=== PATIENT | female | born 1950 | race Caucasian/White ===

== ENCOUNTER 2016-06-10 21:37 | Emergency (ER) | payer MEDICARE, MEDICAID ==
[2016-06-10] MEDS ORDERED: ASPIRIN 81 MG TABLET, CHEWABLE PO ONE (22:44)
[2016-06-10] MEDS ORDERED: MORPHINE SULFATE 10 MG/ML INJ IV ONE ×2 (22:44→23:45)
[2016-06-10 22:50] LABS: ABSOLUTE BASOPHILS # (AUTO) 0.1 10^3/uL (0.0-0.2); ABSOLUTE EOSINOPHILS # (AUTO) 0.2 10^3/uL (0.0-0.6); ABSOLUTE LYMPHOCYTES (AUTO) 4.8 10^3/uL (0.5-4.7); ABSOLUTE MONOCYTES (AUTO) 0.9 10^3/uL (0.1-1.4); ABSOLUTE NEUT (AUTO) 4.5 10^3/uL (1.7-8.2); BASOPHILS % (AUTO) 0.8 % (0-2); EOSINOPHILS % (AUTO) 1.9 % (0-6); HEMATOCRIT 43.8 % (36.0-47.0); HEMOGLOBIN 15.2 g/dL (12.0-15.5); HGB HCT DIFFERENCE 1.8; LYMPHOCYTES % (AUTO) 45.6 % (13-45); MEAN CORPUSCULAR HEMOGLOBIN 31.6 pg (27.0-33.4); MEAN CORPUSCULAR HGB CONC 34.7 g/dL (32.0-36.0); MEAN CORPUSCULAR VOLUME 91 fl (80-97); MONOCYTES % (AUTO) 8.5 % (3-13); RED BLOOD COUNT 4.81 10^6/uL (3.72-5.28); RED CELL DISTRIBUTION WIDTH 11.9 % (11.5-14.0); SEGMENTED NEUTROPHILS % (AUTO) 43.2 % (42-78); WHITE BLOOD COUNT 10.4 10^3/uL (4.0-10.5)
[2016-06-10 23:05] LABS: ALANINE AMINOTRANSFERASE 27 U/L (9-52); ALBUMIN 4.4 g/dL (3.5-5.0); ALKALINE PHOSPHATASE 124 U/L (38-126); ANION GAP 16 (5-19); ASPARTATE AMINO TRANSFERASE 38 U/L (14-36); BILIRUBIN,DIRECT 0.2 mg/dL (0.0-0.4); BILIRUBIN,TOTAL 0.6 mg/dL (0.2-1.3); BLOOD UREA NITROGEN 27 mg/dL (7-20); CALCIUM 10.3 mg/dL (8.4-10.2); CARBON DIOXIDE 21 mmol/L (22-30); CHLORIDE 104 mmol/L (98-107); CREATINE KINASE 68 U/L (30-135); CREATININE RESULT 0.73 mg/dL (0.52-1.25); GLUCOSE 216 mg/dL (75-110); POTASSIUM 4.1 mmol/L (3.6-5.0); SODIUM 140.8 mmol/L (137-145); TOTAL PROTEIN 8.2 g/dL (6.3-8.2)
[2016-06-10] MEDS ORDERED: MORPHINE SULFATE 10 MG/ML INJ ONE (23:15)
[2016-06-10 23:17] LABS: CREATINE KINASE MB 1.12 ng/mL (<4.55)
[2016-06-10 23:26] LABS: TROPONIN I < 0.012 ng/mL
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
[2016-06-11] MEDS ORDERED: MORPHINE SULFATE 10 MG/ML INJ IM ONE (00:37)
[2016-06-11 02:23] LABS: CREATINE KINASE MB 0.83 ng/mL (<4.55)
[2016-06-11 02:24] LABS: TROPONIN I < 0.012 ng/mL
[2016-06-11] MEDS ORDERED: HYDROCODONE/ACETAMINOPHEN 5-325 MG 6 TAB/DSPK PO PRN (02:40)
[2016-06-11 03:03] VITALS: BP 178/94
--- NOTE | 2016-06-11 22:08 | EKG REPORT ---
SEVERITY:- ABNORMAL ECG - SINUS TACHYCARDIA MULTIPLE VENTRICULAR PREMATURE COMPLEXES PROBABLE LEFT ATRIAL ABNORMALITY LEFT AXIS DEVIATION : Confirmed by: Tiffanie Wahl MD 11-Jun-2016 22:06:06
== END 2016-06-11 03:04 | disposition home or self-care (01) ==
LOC: ER 21:37
DX: R07.89 Other chest pain (principal); R06.02 Shortness of breath; R11.0 Nausea; R61 Generalized hyperhidrosis; I25.2 Old myocardial infarction
CPT/HCPCS: 93005; 96376; 99285; 96374; 36415; 82553; 82962; 82550; 83690; 85025; 80053; 84484; 83880; 71020; 93010; A9270; J2270 ×2

== ENCOUNTER 2016-11-16 12:53 | Emergency (ER) | payer MEDICARE, MEDICAID ==
[2016-11-16] MEDS ORDERED: NORMAL SALINE 1000 ML 1,000 ML IV PRN (13:52)
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
[2016-11-16 14:28] LABS: ABSOLUTE EOSINOPHILS # (AUTO) 0.1 10^3/uL (0.0-0.6); ABSOLUTE LYMPHOCYTES (AUTO) 1.9 10^3/uL (0.5-4.7); ABSOLUTE MONOCYTES (AUTO) 0.5 10^3/uL (0.1-1.4); ABSOLUTE NEUT (AUTO) 2.5 10^3/uL (1.7-8.2); BASOPHILS % (AUTO) 0.6 % (0-2); EOSINOPHILS % (AUTO) 2.7 % (0-6); HEMATOCRIT 33.6 % (36.0-47.0); HEMOGLOBIN 11.2 g/dL (12.0-15.5); LYMPHOCYTES % (AUTO) 37.6 % (13-45); MEAN CORPUSCULAR HEMOGLOBIN 31.4 pg (27.0-33.4); MEAN CORPUSCULAR HGB CONC 33.3 g/dL (32.0-36.0); MEAN CORPUSCULAR VOLUME 94 fl (80-97); MONOCYTES % (AUTO) 10.1 % (3-13); RED BLOOD COUNT 3.57 10^6/uL (3.72-5.28); RED CELL DISTRIBUTION WIDTH 12.5 % (11.5-14.0); WHITE BLOOD COUNT 5.1 10^3/uL (4.0-10.5)
[2016-11-16 14:35] LABS: ALANINE AMINOTRANSFERASE 38 U/L (9-52); ALBUMIN 3.3 g/dL (3.5-5.0); ALKALINE PHOSPHATASE 90 U/L (38-126); ANION GAP 10 (5-19); ASPARTATE AMINO TRANSFERASE 33 U/L (14-36); BILIRUBIN,DIRECT 0.5 mg/dL (0.0-0.4); BLOOD UREA NITROGEN 23 mg/dL (7-20); CALCIUM 9.1 mg/dL (8.4-10.2); CARBON DIOXIDE 28 mmol/L (22-30); CHLORIDE 94 mmol/L (98-107); CREATININE RESULT 0.69 mg/dL (0.52-1.25); SODIUM 132.1 mmol/L (137-145); TOTAL PROTEIN 5.8 g/dL (6.3-8.2)
[2016-11-16 14:42] LABS: GLUCOSE 463 mg/dL (75-110)
[2016-11-16] MEDS ORDERED: INSULIN REG, HUMAN 100 UNIT/ML 3 ML VIAL (PYX) SUBCUT ONE (14:43)
[2016-11-16 14:55] LABS: APPEARANCE,URINE CLEAR; BILIRUBIN,URINE NEGATIVE (NEGATIVE); GLUCOSE, URINE >=500 mg/dL (NEGATIVE); KETONES,URINE 20 mg/dL (NEGATIVE); LEUKOCYTE ESTERASE,URINE TRACE (NEGATIVE); NITRITE,URINE NEGATIVE (NEGATIVE); PROTEIN,URINE NEGATIVE (NEGATIVE); URINE SPECIFIC GRAVITY 1.033; UROBILINOGEN,URINE NEGATIVE mg/dL (<2.0)
[2016-11-16 15:20] LABS: VENOUS BLOOD BASE EXCESS 1.2 mmol/L; VENOUS BLOOD HCO3 27.5 mmol/L (20-32); VENOUS BLOOD PCO2 51.1 mmHg (35-63); VENOUS BLOOD PH 7.35 (7.30-7.42)
[2016-11-16 15:59] VITALS: BP 147/69
== END 2016-11-16 15:59 | disposition home or self-care (01) ==
LOC: ER 12:53
DX: F41.9 Anxiety disorder, unspecified (principal); I10 Essential (primary) hypertension; E78.00 Pure hypercholesterolemia, unspecified; E11.65 Type 2 diabetes mellitus with hyperglycemia; I25.10 Atherosclerotic heart disease of native coronary artery without angina pectoris; Z90.710 Acquired absence of both cervix and uterus; Z79.4 Long term (current) use of insulin
CPT/HCPCS: 99283; 96360; 36415; 82962; 85025; 80053; 81001; 82803; A9270; J7030; J1815

== ENCOUNTER 2017-01-03 01:43 | Observation (INO) | payer MEDICAID, MEDICARE ==
[2017-01-03] MEDS ORDERED: METOCLOPRAMIDE HCL INJ/PF 10 MG/2 ML SDV IV ONE (02:41)
[2017-01-03] MEDS ORDERED: DIPHENHYDRAMINE HCL 50 MG/ML VIAL IV ONE (02:41)
[2017-01-03] MEDS ORDERED: HYDRALAZINE HCL 50 MG TABLET PO ONE (02:41)
[2017-01-03 02:46] LABS: ABSOLUTE EOSINOPHILS # (AUTO) 0.2 10^3/uL (0.0-0.6); ABSOLUTE LYMPHOCYTES (AUTO) 3.2 10^3/uL (0.5-4.7); ABSOLUTE MONOCYTES (AUTO) 0.6 10^3/uL (0.1-1.4); ABSOLUTE NEUT (AUTO) 2.7 10^3/uL (1.7-8.2); BASOPHILS % (AUTO) 0.7 % (0-2); EOSINOPHILS % (AUTO) 2.2 % (0-6); HEMATOCRIT 41.2 % (36.0-47.0); HEMOGLOBIN 14.5 g/dL (12.0-15.5); HGB HCT DIFFERENCE 2.3; LYMPHOCYTES % (AUTO) 47.5 % (13-45); MEAN CORPUSCULAR HEMOGLOBIN 33.1 pg (27.0-33.4); MEAN CORPUSCULAR HGB CONC 35.2 g/dL (32.0-36.0); MEAN CORPUSCULAR VOLUME 94 fl (80-97); MONOCYTES % (AUTO) 9.5 % (3-13); RED BLOOD COUNT 4.38 10^6/uL (3.72-5.28); RED CELL DISTRIBUTION WIDTH 13.7 % (11.5-14.0); SEGMENTED NEUTROPHILS % (AUTO) 40.1 % (42-78); WHITE BLOOD COUNT 6.7 10^3/uL (4.0-10.5)
[2017-01-03] MEDS ORDERED: INSULIN REG, HUMAN 100 UNIT/ML 3 ML VIAL (PYX) SUBCUT ONE (02:52)
--- NOTE | 2017-01-03 02:56 | ER Document Report ---
ED General - General Chief Complaint: Blood Pressure Problem Stated Complaint: BLOOD PRESSURE PROBLEMS Time Seen by Provider: 01/03/17 02:35 Notes: Patient is a 66-year-old female presents with complaint of high blood pressure, headache, and vomiting. Patient says that her blood pressure has been running high the last several days and also her blood sugars were running high. She says this is related to stress being that she just found out that her nephews being placed on hospice due to her newfound cancer with metastasis throughout his body. She says she has been taking medications as prescribed. For blood pressure takes Toprol-XL. She takes in the morning. She has had no recent changes in the dosages of her medications. No recent additions of other medications. On exam patient also had some mild right abdominal pain that she says is been there for 4 months. She says her primary care physician is informed her that she has internal shingles. She says she has been treated several times with steroids for this. Denies any worsening or pain. She denies any associated fevers. No dysuria. TRAVEL OUTSIDE OF THE [place] IN LAST 30 DAYS: No - Related Data Allergies/Adverse Reactions: prochlorperazine edisylate [From Compazine] Allergy (Intermediate, Verified 12/23 13:07) facial pain prochlorperazine maleate [From Compazine] Allergy (Intermediate, Verified 13:07) facial pain Past Medical History - Social History Smoking Status: Never Smoker Chew tobacco use (# tins/day): No Frequency of alcohol use: None Drug Abuse: None Family History: Arthritis, CAD, CVA, DM, Hyperlipidemia, Hypertension, Malignancy, Thyroid Disfunction Patient has suicidal ideation: No Patient has homicidal ideation: No - Past Medical History Cardiac Medical History: Reports: Hx Coronary Artery Disease, Hx Hypercholesterolemia, Hx Hypertension Pulmonary Medical History: Reports: Hx Asthma Neurological Medical History: Reports: Hx Migraine Endocrine Medical History: Reports: Hx Diabetes Mellitus Type 2 Renal/ Medical History: Reports: Hx Ovarian Cysts. Denies: Hx Peritoneal Dialysis Musculoskeltal Medical History: Reports Hx Arthritis, Reports Hx Musculoskeletal Deformity, Reports Hx Musculoskeletal Trauma Psychiatric Medical History: Reports: Hx Anxiety, Hx Depression Traumatic Medical History: Reports: Hx Fractures - Shoulder ankle and elbow Past Surgical History: Reports: Hx Hysterectomy, Hx Orthopedic Surgery - Shoulder rotator cuff and carpal tunnel both wrist. Denies: Hx Pacemaker - Immunizations Hx Diphtheria, Pertussis, Tetanus Vaccination: Yes Hx Pneumococcal Vaccination: 03/09/09 Review of Systems - Review of Systems Notes: My Normal Review Basic REVIEW OF SYSTEMS: CONSTITUTIONAL : Denies fever, chills, or sweats. Denies recent illness. EENT: Denies eye, ear, throat, or mouth pain or symptoms. Denies nasal or sinus congestion. RESPIRATORY: Denies cough, cold, or chest congestion. Denies shortness of breath, difficulty breathing, or wheezing. GASTROINTESTINAL: Mild right-sided flank pain. Abdominal pain. A few episodes of vomiting. GENITOURINARY: Denies difficulty urinating, painful urination, burning, frequency, or blood in urine. MUSCULOSKELETAL: Denies neck or back pain or joint pain or swelling. SKIN: Denies rash or skin lesions. NEUROLOGICAL: Denies altered mental status or loss of consciousness. Has a headache. Denies weakness or paralysis or loss of use of either side. Denies problems with gait or speech. Denies sensory or motor loss. ALL OTHER SYSTEMS REVIEWED AND NEGATIVE. Physical Exam - Vital signs Vitals: Temp Pulse Resp BP Pulse Ox 97.3 F 113 H 18 194/99 H 97 01/03/17 01:45 01/03/17 01:45 01/03/17 01:45 01/03/17 01:45 01/03/17 01:45 - Notes Notes: General Appearance: Well nourished, alert, cooperative, no acute distress, no obvious discomfort. Vitals: reviewed, See vital signs table. Head: no swelling or tenderness to the head Eyes: PERRL, EOMI, Conjuctiva clear Mouth: No decreasd moisture Neck: Supple, no neck tenderness, No thyromegaly Lungs: No wheezing, No rales, No rhonci, No accessory muscle use, good air exchange bilaterally. Heart: Normal rate, Regular rythm, No murmur, no rub Abdomen: Normal BS, soft, No rigidity, mild pain to palpation over right flank. No associated right lower quadrant tenderness palpation. Remainder of abdomen is nontender., No guarding, no rebound, Extremities: strength 5/5 in all extremities, good pulses in all extremities, no swelling or tenderness in the extremities, no edema. Skin: warm, dry, appropriate color, no rash Neuro: speech clear, oriented x 3, normal affect, responds appropriately to questions. Cranial nerves II through XII are intact. Distal sensation intact. Patient moves all extremities without difficulty. Course - Re-evaluation Re-evalutation: 01/03/17 06:01 Patient has refractory high blood pressure despite treatment with antihypertensive medications and also treatment of her anxiety with Ativan. Due to having symptoms junction with her hypertension I think it is appropriate to admit her for hypertensive urgency and also for treatment of her hyperglycemia. I did speak with the patient agrees with this. I did speak with the hospitalist, Dr. Sood, who agrees to admit the patient. Dictation of this chart was performed using voice recognition software; therefore, there may be some unintended grammatical errors. - Vital Signs Vital signs: Temp Pulse Resp BP Pulse Ox 97.3 F 113 H 18 197/99 H 97 01/03/17 01:45 01/03/17 01:45 01/03/17 05:01 01/03/17 04:40 01/03/17 05:01 - Laboratory Result Diagrams: 01/03/17 02:25 01/03/17 03:06 Laboratory results interpreted by me: 01/03/17 01/03/17 01/03/17 02:25 03:06 03:37 Seg Neutrophils % 40.1 L Lymphocytes % 47.5 H BUN 21 H Glucose 476 H* POC Glucose 424 H* Calcium 10.7 H Direct Bilirubin 0.5 H - EKG Interpretation by Me Additional EKG results interpreted by me: 01/03/17 02:58 EKG is as reviewed and interpreted by me. EKG shows normal sinus rhythm with rate of [address] segment elevation or depression. No ischemic T-wave inversions. IA interval, QRS duration, QTc intervals are within normal range. Old EKG for comparison is from June 10, 2016. Discharge - Discharge Clinical Impression: Hypertensive urgency, Hyperglycemia Condition: Stable Admitting Provider: Hospitalist Unit Admitted: Telemetry
--- NOTE | 2017-01-03 03:04 | RADIOLOGY REPORT (SQ) ---
EXAM DESCRIPTION: CT HEAD WITHOUT COMPLETED DATE/TIME: 01/03/2017 2:55 am REASON FOR STUDY: headache, HTN COMPARISON: 10/08/2015. TECHNIQUE: Axial images acquired through the brain without intravenous contrast. Images reviewed wi th bone, brain and subdural windows. Images stored on PACS. All CT scanners at this facility use dose modulation, iterative reconstruction, and/or weight based d osing when appropriate to reduce radiation dose to as low as reasonably achievable (ALARA). [facility]: Dose Right [facility]: CareDose [facility]: Dose Right [facility]: Teradose 4D [facility]: Smart [employer] RADIATION DOSE: Up-to-date CT equipment and radiation dose reduction techniques were employed. CTDIv ol: 64.6 mGy. DLP: 1034 mGy-cm. mGy. LIMITATIONS: None. FINDINGS: VENTRICLES: Normal size and contour. CEREBRUM: No masses. No hemorrhage. No midline shift. No evidence for acute infarction. Normal gra y/white matter differentiation. No areas of low density in the white matter. CEREBELLUM: No masses. No hemorrhage. No alteration of density. No evidence for acute infarction. EXTRAAXIAL SPACES: No fluid collections. No masses. ORBITS AND GLOBE: No intra- or extraconal masses. Normal contour of globe without masses. CALVARIUM: No fracture. PARANASAL SINUSES: No fluid or mucosal thickening. SOFT TISSUES: No mass or hematoma. OTHER: No other significant finding. IMPRESSION: NORMAL BRAIN CT WITHOUT CONTRAST. EVIDENCE OF ACUTE STROKE: NO. COMMENT: Quality ID # [id number]: Final reports with documentation of one or more dose reduction techniques (e.g., Automated exposure control, adjustment of the mA and/or kV according to patient size, use of iterative reconstruction technique) TECHNICAL DOCUMENTATION: JOB ID: [id number] [employer]- All Rights Reserved
[2017-01-03 03:05] LABS: CREATINE KINASE MB 0.83 ng/mL (<4.55); TROPONIN I 0.014 ng/mL
[2017-01-03 03:28] LABS: ALANINE AMINOTRANSFERASE 28 U/L (9-52); ALBUMIN 4.5 g/dL (3.5-5.0); ALKALINE PHOSPHATASE 110 U/L (38-126); ANION GAP 16 (5-19); ASPARTATE AMINO TRANSFERASE 32 U/L (14-36); BILIRUBIN,DIRECT 0.5 mg/dL (0.0-0.4); BLOOD UREA NITROGEN 21 mg/dL (7-20); CALCIUM 10.7 mg/dL (8.4-10.2); CARBON DIOXIDE 24 mmol/L (22-30); CHLORIDE 99 mmol/L (98-107); CREATININE RESULT 0.79 mg/dL (0.52-1.25); POTASSIUM 4.4 mmol/L (3.6-5.0); SODIUM 139.2 mmol/L (137-145); TOTAL PROTEIN 8.2 g/dL (6.3-8.2)
[2017-01-03 03:40] LABS: CREATINE KINASE 41 U/L (30-135)
--- NOTE | 2017-01-03 03:40 | RADIOLOGY REPORT (SQ) ---
EXAM DESCRIPTION: CHEST SINGLE VIEW COMPLETED DATE/TIME: 01/03/2017 2:48 am REASON FOR STUDY: chest pain; hypertension COMPARISON: 06/10/2016. EXAM PARAMETERS: NUMBER OF VIEWS: One view. TECHNIQUE: Single frontal radiographic view of the chest acquired. RADIATION DOSE: NA LIMITATIONS: None. FINDINGS: LUNGS AND PLEURA: Moderate hyperinflation. MEDIASTINUM AND HILAR STRUCTURES: No masses. Contour normal. HEART AND VASCULAR STRUCTURES: Heart normal in size. BONES: No acute findings. HARDWARE: Arthroplasty of the right humeral head. OTHER: No other significant finding. IMPRESSION: No acute cardiopulmonary findings. TECHNICAL DOCUMENTATION: JOB ID: [id number]
[2017-01-03 03:48] LABS: GLUCOSE 476 mg/dL (75-110)
[2017-01-03] MEDS ORDERED: NORMAL SALINE 500 ML IV ONE (03:48)
[2017-01-03] MEDS ORDERED: LORAZEPAM INJ 2 MG/1 ML VIAL IV ONE (05:07)
[2017-01-03] MEDS ORDERED: LABETALOL HCL INJ 20 MG/4 ML DISP.SYRIN IV ONE (05:07)
[2017-01-03] MEDS ORDERED: KETOROLAC TROMETHAMINE INJ/PF 30 MG/1 ML SDV IV ONE ×2 (05:43→11:12)
[2017-01-03] MEDS ORDERED: CYCLOBENZAPRINE HCL 10 MG TABLET PO PRN (06:01)
[2017-01-03] MEDS ORDERED: DIAZEPAM 2 MG TABLET PO PRN (06:03)
[2017-01-03] MEDS ORDERED: DEXTROSE 50%-WATER 25 GM/50 ML DISP.SYRIN IV PRN ×2 (06:04)
[2017-01-03] MEDS ORDERED: DEXTROSE 40% GEL 15 GM TUBE PO PRN ×2 (06:04)
[2017-01-03] MEDS ORDERED: GLUCAGON,HUMAN RECOMB 1 MG INJ IM PRN (06:04)
[2017-01-03] MEDS ORDERED: MAGNESIUM HYDROXIDE SUSP 30 ML UDCUP PO PRN (06:04)
[2017-01-03] MEDS ORDERED: IPRATROPIUM/ALBUTEROL 0.5-2.5 MG/3 ML AMPUL NEB PRN (06:04)
[2017-01-03] MEDS ORDERED: ACETAMINOPHEN 325 MG TABLET PO PRN (06:04)
--- NOTE | 2017-01-03 06:46 | PDOC H&P ---
History of Present Illness Admission Date/PCP: 01/03/17 06:04 MAIKEL TYLER MD Patient complains of: Headache nausea and vomiting History of Present Illness: YAAKOV SUMMERS is a 66 year old female with a past medical history of hypertension, diabetes, dyslipidemia and anxiety. Patient has been under exceptional emotional stress with diagnosis of terminal illness of nephew and noncompliance with medication regiment. She presents after 6 hours of nausea vomiting and headache, in the emergency room she is found to have systolic pressure greater than 200 and uncontrolled hyperglycemia. She receives IV hydralazine, labetalol, insulin and Ativan with improvement of symptoms and referred to the hospitalist for admission. She denies chest pain or shortness of breath. Past Medical History Cardiac Medical History: Reports: Coronary Artery Disease, Hyperlipidema, Hypertension Pulmonary Medical History: Reports: Asthma Neurological Medical History: Reports: Migraine Endocrine Medical History: Reports: Diabetes Mellitus Type 2, Obesity Musculoskeltal Medical History: Reports: Arthritis Psychiatric Medical History: Reports: Depression, General Anxiety Disorder Past Surgical History Past Surgical History: Reports: Hysterectomy, Orthopedic Surgery - Shoulder rotator cuff and carpal tunnel both wrist Denies: Pacemaker Social History Information Source: Patient, [facility] Records Lives with: Alone Smoking Status: Never Smoker Frequency of Alcohol Use: None Hx Recreational Drug Use: No Drugs: None Hx Prescription Drug Abuse: No - Advance Directive Resuscitation Status: Full Code Family History Family History: Arthritis, CAD, CVA, DM, Hyperlipidemia, Hypertension, Malignancy, Thyroid Disfunction Parental Family History Reviewed: Yes Children Family History Reviewed: Yes Sibling(s) Family History Reviewed.: Yes Medication/Allergy Home Medications: Albuterol Sulfate [Ventolin Hfa] 1 puff IH ASDIR PRN 02/08/15 Atorvastatin Calcium [Lipitor 80 mg Tablet] 80 mg PO DAILY 02/08/15 Cyclobenzaprine HCl 10 mg PO TID PRN 02/08/15 Duloxetine HCl [Cymbalta] 60 mg PO BID 02/08/15 Gabapentin [Neurontin] 600 mg PO QID 02/08/15 Hydroxyzine Pamoate [Vistaril 25 mg Capsule] 25 mg PO QHS 02/08/15 Ipratropium/Albuterol Sulfate [Combivent Respimat 4 gm Mdi] 1 puff IH ASDIR PRN 02/08/15 Lorazepam [Ativan 1 mg Tablet] 1 mg PO BID PRN 02/08/15 Metoprolol Succinate [Toprol Xl 25 mg Tab.sr] 25 mg PO DAILY 02/08/15 Rizatriptan Benzoate [[employer]] 10 mg PO ASDIR PRN 02/08/15 Hydrochlorothiazide 12.5 mg PO DAILY 07/30/15 Metformin HCl [Metformin HCl ER] 1,000 mg PO DAILY 07/30/15 Oxycodone HCl/Acetaminophen [Percocet 7.5-325 mg Tablet] 1 tab PO QID PRN Promethazine HCl 25 mg PO PRN PRN 07/30/15 Insulin Glargine,Hum.rec.anlog [Lantus Insulin 100 Unit/mL] 44 units SQ QHS Insulin NPH Hum/Reg Insulin Hm [Humulin 70-30 Vial] 20 units SQ Q6HP 07/31/15 Insulin NPH Hum/Reg Insulin Hm [Humulin 70-30 Vial] 30 unit SQ Q8A 07/31/15 Fenofibrate Nanocrystallized [Tricor 48 mg Tablet] 48 mg PO DAILY #30 tablet Lansoprazole [Prevacid 30 mg Odt Tablet] 30 mg PO Q6AM #30 tab.rap. 08/01/15 Hydrocodone/Acetaminophen [Hydrocodon-Acetaminophen 5-325] 1 each PO Q6 #10 tablet 06/11/16 Allergies/Adverse Reactions: prochlorperazine edisylate [From Compazine] Allergy (Intermediate, Verified 12/23 13:07) facial pain prochlorperazine maleate [From Compazine] Allergy (Intermediate, Verified 13:07) facial pain Review of Systems Constitutional: PRESENT: as per HPI, other - Polyuria polydipsia and headache. ABSENT: chills, fever(s), headache(s), weight gain, weight loss Eyes: ABSENT: visual disturbances Ears: ABSENT: hearing changes Cardiovascular: ABSENT: chest pain, dyspnea on exertion, edema, orthropnea, palpitations Respiratory: ABSENT: cough, hemoptysis Gastrointestinal: ABSENT: abdominal pain, constipation, diarrhea, hematemesis, hematochezia, nausea, vomiting Genitourinary: ABSENT: dysuria, hematuria Musculoskeletal: ABSENT: joint swelling Integumentary: ABSENT: rash, wounds Neurological: ABSENT: abnormal gait, abnormal speech, confusion, dizziness, focal weakness, syncope Psychiatric: ABSENT: anxiety, depression, homidical ideation, suicidal ideation Endocrine: ABSENT: cold intolerance, heat intolerance, polydipsia, polyuria Hematologic/Lymphatic: ABSENT: easy bleeding, easy bruising Physical Exam Vital Signs: Temp Pulse Resp BP Pulse Ox 97.3 F 113 H 23 H 211/97 H 96 01/03/17 01:45 01/03/17 01:45 01/03/17 06:07 01/03/17 05:31 01/03/17 06:07 General appearance: PRESENT: no acute distress, well-developed, well-nourished Head exam: PRESENT: atraumatic, normocephalic Eye exam: PRESENT: conjunctiva pink, EOMI, PERRLA. ABSENT: scleral icterus Ear exam: PRESENT: normal external ear exam Mouth exam: PRESENT: moist, tongue midline Neck exam: ABSENT: carotid bruit, JVD, lymphadenopathy, thyromegaly Respiratory exam: PRESENT: clear to auscultation reanna. ABSENT: rales, rhonchi, wheezes Cardiovascular exam: PRESENT: RRR. ABSENT: diastolic murmur, rubs, systolic murmur Pulses: PRESENT: normal dorsalis pedis pul Vascular exam: PRESENT: normal capillary refill GI/Abdominal exam: PRESENT: normal bowel sounds, soft. ABSENT: distended, guarding, mass, organolmegaly, rebound, tenderness Rectal exam: PRESENT: deferred Extremities exam: PRESENT: full ROM. ABSENT: calf tenderness, clubbing, pedal edema Neurological exam: PRESENT: alert, awake, oriented to person, oriented to place , oriented to time, oriented to situation, CN II-XII grossly intact. ABSENT: motor sensory deficit Psychiatric exam: PRESENT: anxious. ABSENT: homicidal ideation, suicidal ideation Skin exam: PRESENT: dry, intact, warm. ABSENT: cyanosis, rash Results Impressions: Chest X-Ray 01/03/17 01:59 IMPRESSION: No acute cardiopulmonary findings. Head CT 01/03/17 02:42 IMPRESSION: NORMAL BRAIN CT WITHOUT CONTRAST. EVIDENCE OF ACUTE STROKE: NO. Assessment & Plan - Diagnosis (1) Hypertensive urgency Is this a current diagnosis for this admission?: Yes Plan: Secondary to noncompliance and uncontrolled anxiety. Patient will be admitted to a monitored bed with reintroduction of home regiment with holding parameters to avoid systolic pressure less than 150. Patient is also without financial means to obtain medications discharge planning will be consulted. (2) Anxiety Is this a current diagnosis for this admission?: Yes Plan: Trazodone and low-dose benzodiazepine ordered. (3) Hyperglycemia Is this a current diagnosis for this admission?: Yes Plan: Uncontrolled hyperglycemia secondary to noncompliance and anxious state. Reintroduction of insulin 7030 with sliding scale and discharge planning consult as unable to fill prescriptions secondary to financial barriers. - Time Time Spent: 50 to 70 Minutes
[2017-01-03 09:40] LABS: CREATINE KINASE MB 0.77 ng/mL (<4.55)
[2017-01-03 09:46] LABS: TROPONIN I < 0.012 ng/mL
[2017-01-03] MEDS ORDERED: HYDROCHLOROTHIAZIDE 12.5 MG CAPSULE PO SCH (10:00)
[2017-01-03] MEDS ORDERED: TRAZODONE HCL 50 MG TABLET PO SCH (10:00)
[2017-01-03] MEDS ORDERED: METOPROLOL SUCCINATE 25 MG TAB.SR.24H PO SCH (10:00)
[2017-01-03] MEDS ORDERED: ATORVASTATIN CALCIUM 80 MG TABLET PO SCH (10:00)
[2017-01-03] MEDS ORDERED: IPRATROPIUM/ALBUTEROL 120 PUFF/4 GM MDI IH SCH (10:00)
[2017-01-03] MEDS ORDERED: FENOFIBRATE NANOCRYSTALLIZED 48 MG TABLET PO SCH (10:00)
[2017-01-03] MEDS: HUM INSULIN NPH/REG INSULIN HM 100 UNIT/1 ML 3 ML SUBCUT SCH ×2 (10:00→16:39)
[2017-01-03] MEDS: DULOXETINE HCL 30 MG CAPSULE.DR PO SCH ×2 (10:01→18:29)
[2017-01-03] MEDS: INSULIN LISPRO 100 UNIT/ML 3 ML VIAL SUBCUT PRN ×3 (10:01→16:42)
[2017-01-03] MEDS: GABAPENTIN 300 MG CAPSULE PO SCH ×3 (10:01→18:30)
[2017-01-03] MEDS: DOCUSATE SODIUM 100 MG CAPSULE PO SCH ×2 (10:03→18:30)
[2017-01-03] MEDS ORDERED: (PENDING PHARMACY ID) (Oxycodone Hcl/Acetaminophen [Percocet 7.5-325 Mg Tablet] 1 TAB) PO PRN (11:14)
[2017-01-03] MEDS ORDERED: HYDROCHLOROTHIAZIDE 25 MG TABLET PO ONE (11:30)
[2017-01-03] MEDS ORDERED: METOPROLOL SUCCINATE 50 MG TAB.SR.24H PO ONE (11:30)
[2017-01-03] MEDS ORDERED: OXYCODONE-ACETAMINOPHEN 5-325 MG TABLET PO PRN (11:38)
[2017-01-03] MEDS ORDERED: OXYCODONE HCL IR 5 MG TABLET PO PRN (11:38)
[2017-01-03] MEDS: IPRATROPIUM/ALBUTEROL 120 PUFF/4 GM MDI IH SCH ×2 (12:22→18:49)
--- NOTE | 2017-01-03 13:37 | EKG REPORT ---
SEVERITY:- BORDERLINE ECG - SINUS RHYTHM PROBABLE LEFT ATRIAL ABNORMALITY LEFT AXIS DEVIATION : Confirmed by: Rox Diaz 03-Jan-2017 13:36:37
[2017-01-03] MEDS ORDERED: HEPARIN SOD (PORCINE) 5,000 UNIT/ML 1 ML SYRINGE SUBCUT SCH (14:00)
--- NOTE | 2017-01-03 15:12 | PDOC DISCHARGE SUMMARY ---
General - Admit/Disc Date/PCP Admission Date/Primary Care Provider: 01/03/17 06:04 MAIKEL TYLER MD Discharge Date: 01/03/17 - Discharge Diagnosis (1) Hypertensive urgency Is this a current diagnosis for this admission?: Yes Summary: Pt admitted with hypertensive urgency; BP as high as 277/97. Workup did not reveal end organ damage. Pt does endorse medication noncompliance, stating she "picks and chooses" when to take her medications. She has also been under increased stress recently related to family. Her home medications were restituted with slight increases to her metoprolol and hydrochlorothiazide and subsequent improvement in BP. BP remains elevated at 168/66, however, is acceptable for discharge to home with close follow up with primary care provider. (2) Hyperglycemia Is this a current diagnosis for this admission?: Yes Summary: Upon admission, the patient's bgl was 476 with A1c of 9.9%. She reported that she was unable to comply with insulin therapy 2/2 financial burden and so her glucose was managed with 70/30 and sliding scale insulin with gradual reduction of bgl. However, she later states that she has metformin and lantus available to her at home. Ss she is admittedly noncompliant, there is concern about whether she truly has insulin available to her at home. Record review shows that patient has previously been prescribed 70/30, and so she is provided a prescription for the same with strict instructions to continue this regiment until follow up with pcp next week. (3) Noncompliance with medication regimen Is this a current diagnosis for this admission?: Yes Summary: Pt reports that she "picks and chooses" which of her medications she wishes to take. She states that this is due to the fact that "they don't write the reasons for med pills on the bottle." She denies difficulty with affording medications and confirms that she has filled medications recently and has them available at home to take. Discussed importance of taking medications as prescribed to manage her hypertension and diabetes. She states she will "do what she can." (4) Anxiety Is this a current diagnosis for this admission?: Yes Summary: Pt with history of anxiety exacerbated by family member recently being diagnosed with a terminal illness. She was provided trazadone with adequate reduction of anxiety. Review of [facility] database demonstrates that pt was previously prescribed senior living BZO that were discontinued this time last year; discussed with patient that she would benefit from speaking with her PCP about her anxiety symptoms and consider a referral for outpatient psychiatry/ counselling services. (5) Headache Is this a current diagnosis for this admission?: Yes Summary: Pt with hx of chronic headaches that she reports have been unresponsive "to everything but oxycodone" in the past. Work up in the ED did include a Head CT with no abnormal findings. IV toradol was provided with moderate relief and her home pain medication regiment was continued. (6) Chronic pain disorder Is this a current diagnosis for this admission?: Yes Summary: Pt with hx of chronic right shoulder and back pain who is followed by pain management. Review of [place] controlled database demonstrates that pt received Opana BID and oxycodone TID. Her home medications were continued. (7) Diabetes mellitus type 2 in obese Is this a current diagnosis for this admission?: Yes - Additional Information Resuscitation Status: Full Code Home Medications: Acetaminophen [Tylenol 325 mg Tablet] 650 mg PO Q4HP PRN tablet 01/03/17 Atorvastatin Calcium [Lipitor 80 mg Tablet] 80 mg PO QHS 01/03/17 Duloxetine HCl [Cymbalta] 60 mg PO Q12 01/03/17 Fenofibrate Nanocrystallized [Fenofibrate] 48 mg PO DAILY 01/03/17 Gabapentin [Neurontin] 600 mg PO Q6 01/03/17 Hum Insulin NPH/Reg Insulin Hm [Insulin 70-30 (NPH/Reg) 100 unit/mL] 30 unit SUBCUT Q8A #3 vial 01/03/17 Hydrochlorothiazide [Hydrodiuril 25 mg Tablet] 25 mg PO DAILY #30 tablet Hydroxyzine HCl [Atarax 25 mg Tablet] 25 mg PO Q8HP PRN 01/03/17 Ipratropium/Albuterol Sulfate [Combivent Respimat 4 gm Mdi] 1 puff IH Q6 Metoprolol Succinate [Toprol Xl 50 mg Tab.sr] 50 mg PO DAILY #30 tab.sr.24h Oxycodone HCl/Acetaminophen [Percocet 7.5-325 mg Tablet] 1 tab PO Q8HP PRN 01/03 Oxymorphone HCl [Opana ER] 10 mg PO Q12 10/28/17 Syringe and Needle,Insulin,1Ml [Insulin Syringe] 1 each SQ TID #90 disp.syrin History of Present Illness History of Present Illness: Per H&P by Dr. Sood: YAAKOV SUMMERS is a 66 year old female with a past medical history of hypertension, diabetes, dyslipidemia and anxiety. Patient has been under exceptional emotional stress with diagnosis of terminal illness of nephew and noncompliance with medication regiment. She presents after 6 hours of nausea vomiting and headache, in the emergency room she is found to have systolic pressure greater than 200 and uncontrolled hyperglycemia. She receives IV hydralazine, labetalol, insulin and Ativan with improvement of symptoms and is referred to the hospitalist for admission. She denies chest pain or shortness of breath. Hospital Course Hospital Course: Pt was admitted overnight for observation and treatment of hypertensive urgency and hyperglycemia complicated by anxiety and medication non adherence. Her home medications were restituted with slight increases to her metoprolol and hydrochlorothiazide and subsequent improvement in BP. Her glucose was managed with 70/30 and sliding scale insulin with gradual reduction of bgl. Otherwise, her hospital stay was uneventful. She is discharged to home with strong recommendations to take medications as prescribed and to follow up with primary care within one week. Physical Exam Vital Signs: Temp Pulse Resp BP Pulse Ox 98.3 F 76 16 168/66 H 98 01/03/17 09:29 01/03/17 09:29 01/03/17 09:29 01/03/17 09:29 01/03/17 09:29 Intake & Output 01/02/17 01/03/17 01/04/17 06:59 06:59 06:59 Weight 89.1 kg General appearance: PRESENT: no acute distress, obese, well-developed, well- nourished Head exam: PRESENT: atraumatic, normocephalic Eye exam: PRESENT: conjunctiva pink, EOMI, PERRLA. ABSENT: scleral icterus Ear exam: PRESENT: normal external ear exam Mouth exam: PRESENT: moist, tongue midline Neck exam: ABSENT: carotid bruit, JVD, lymphadenopathy, thyromegaly Respiratory exam: PRESENT: clear to auscultation reanna, symmetrical, unlabored. ABSENT: rales, rhonchi, wheezes Cardiovascular exam: PRESENT: RRR, +S1, +S2. ABSENT: diastolic murmur, rubs, systolic murmur Pulses: PRESENT: normal dorsalis pedis pul Vascular exam: PRESENT: normal capillary refill GI/Abdominal exam: PRESENT: normal bowel sounds, soft. ABSENT: distended, guarding, mass, organolmegaly, rebound, tenderness Rectal exam: PRESENT: deferred Extremities exam: PRESENT: full ROM. ABSENT: calf tenderness, clubbing, pedal edema Neurological exam: PRESENT: alert, awake, oriented to person, oriented to place , oriented to time, oriented to situation, CN II-XII grossly intact. ABSENT: motor sensory deficit Psychiatric exam: PRESENT: anxious, appropriate affect. ABSENT: homicidal ideation, suicidal ideation Skin exam: PRESENT: dry, intact, warm. ABSENT: cyanosis, rash Results Laboratory Results: 01/03/17 08:58 TSH 0.63 01/03/17 01/03/17 08:58 08:58 Creatine Kinase 23 L CK-MB (CK-2) 0.77 Troponin I < 0.012 Impressions: Chest X-Ray 01/03/17 01:59 IMPRESSION: No acute cardiopulmonary findings. Head CT 01/03/17 02:42 IMPRESSION: NORMAL BRAIN CT WITHOUT CONTRAST. EVIDENCE OF ACUTE STROKE: NO. Qualifiers PATEINT BEING DISCHARGED WITH ANY OF THE FOLLOWING DIAGNOSIS?: No Plan Discharge Plan: D/C to home. Follow up with primary care provider next week.
[2017-01-03 16:19] LABS: CREATINE KINASE MB 0.73 ng/mL (<4.55)
[2017-01-03 16:24] LABS: TROPONIN I < 0.012 ng/mL
[2017-01-03 17:50] VITALS: BP 171/84
[2017-01-03] MEDS ORDERED: HUM INSULIN NPH/REG INSULIN HM 100 UNIT/1 ML 3 ML SUBCUT SCH (22:00)
[2017-01-03] MEDS ORDERED: (PENDING PHARMACY ID) (Oxymorphone Hcl [Opana Er] 10 MG) PO SCH (22:00)
[2017-01-04] MEDS ORDERED: HYDROCHLOROTHIAZIDE 25 MG TABLET PO SCH (10:00)
[2017-01-04] MEDS ORDERED: METOPROLOL SUCCINATE 50 MG TAB.SR.24H PO SCH (10:00)
== END 2017-01-03 18:58 | disposition home or self-care (01) ==
LOC: ER 01:43 → EH 06:04 → 4S 09:12
PROVIDERS: ADMIT Internal Medicine; ATTEND Internal Medicine
DX: I16.0 Hypertensive urgency (principal); Z91.14 Patient's other noncompliance with medication regimen; F41.1 Generalized anxiety disorder; R51 Headache; G89.29 Other chronic pain; M25.511 Pain in right shoulder; M54.9 Dorsalgia, unspecified; E66.9 Obesity, unspecified; E11.65 Type 2 diabetes mellitus with hyperglycemia; E78.5 Hyperlipidemia, unspecified; Z79.899 Other long term (current) drug therapy; Z82.3 Family history of stroke; Z82.49 Family history of ischemic heart disease and other diseases of the circulatory system; Z59.9 Problem related to housing and economic circumstances, unspecified; Z90.710 Acquired absence of both cervix and uterus; Z68.34 Body mass index [BMI] 34.0-34.9, adult
CPT/HCPCS: 93005; 99285; 96361; 96374; 96375; 36415; 82553; 82962; 82550; 84443; 85025; 80053; 84484; 83036; 71010; 70450; 93010; G0378 ×2; A9270 ×14; J1644; J1200; J3490; J1885; J2765; J2060; J7040; J1815

== ENCOUNTER 2017-08-25 09:58 | Emergency (ER) | payer MEDICAID, MEDICARE ==
[2017-08-25] MEDS ORDERED: HYDROMORPHONE HCL INJ/PF 2 MG/ML AMPULE IM ONE (11:05)
[2017-08-25] MEDS ORDERED: LIDOCAINE 5% (700 MG) TRANSDERMAL ADH..PATCH TP ONE (11:06)
--- NOTE | 2017-08-25 11:06 | ER Document Report ---
HPI - HPI Patient complains to provider of: Sciatica Onset: Other - 2 days Onset/Duration: Persistent, Worse Quality of pain: Sharp Pain Level: 5 Context: Patient reports sciatica for the past 2 days. Patient states she has had this in the past and this is similar presentation to previous episode. Patient denies any back injury. Patient does complain of nausea. Patient denies any fever or urinary symptoms. Patient does take chronic pain medication for chronic shoulder pain and states that she ran out of her pain medication last week. Associated Symptoms: Other - Low back pain Exacerbated by: Movement Relieved by: Denies Similar symptoms previously: Yes Recently seen / treated by doctor: No - ROS ROS below otherwise negative: Yes Systems Reviewed and Negative: Yes All other systems reviewed and negative - CONSTITUTIONAL Constitutional: DENIES: Fever, Chills - NEURO Neurology: DENIES: Headache, Weakness - GASTROINTESTINAL Gastrointestinal: REPORTS: Nausea. DENIES: Abdominal Pain, Patient vomiting, Diarrhea - URINARY Urinary: DENIES: Dysuria - REPRODUCTIVE Reproductive: DENIES: : - MUSCULOSKELETAL Musculoskeletal: REPORTS: Extremity pain - right leg, Back Pain. DENIES: Neck Pain - DERM Skin Color: Normal Skin Problems: None Past Medical History - General Information source: Patient - Social History Smoking Status: Never Smoker Chew tobacco use (# tins/day): No Frequency of alcohol use: None Drug Abuse: None Occupation: None Lives with: Family Family History: Arthritis, CAD, CVA, DM, Hyperlipidemia, Hypertension, Malignancy, Thyroid Disfunction Patient has suicidal ideation: No Patient has homicidal ideation: No - Past Medical History Cardiac Medical History: Reports: Hx Coronary Artery Disease, Hx Hypercholesterolemia, Hx Hypertension Pulmonary Medical History: Reports: Hx Asthma Neurological Medical History: Reports: Hx Migraine Endocrine Medical History: Reports: Hx Diabetes Mellitus Type 2 Renal/ Medical History: Reports: Hx Ovarian Cysts. Denies: Hx Peritoneal Dialysis Musculoskeltal Medical History: Reports Hx Arthritis, Reports Hx Musculoskeletal Deformity, Reports Hx Musculoskeletal Trauma Psychiatric Medical History: Reports: Hx Anxiety, Hx Depression - anxiety Traumatic Medical History: Reports: Hx Fractures - Shoulder ankle and elbow Past Surgical History: Reports: Hx Hysterectomy, Hx Orthopedic Surgery - Shoulder rotator cuff and carpal tunnel both wrist. Denies: Hx Pacemaker - Immunizations Hx Diphtheria, Pertussis, Tetanus Vaccination: Yes Hx Pneumococcal Vaccination: 03/09/09 Vertical Provider Document - CONSTITUTIONAL Agree With Documented VS: Yes Exam Limitations: No Limitations General Appearance: WD/WN, No Apparent Distress Notes: PHYSICAL EXAMINATION: GENERAL: Well-appearing, well-nourished and in no acute distress. HEAD: Atraumatic, normocephalic. EYES: sclera clear, anicteric, conjunctiva are normal. ENT: nares patent, Moist mucous membranes. NECK: Normal range of motion, supple no lymphadenopathy LUNGS: respirations unlabored HEART: Regular rate and rhythm without murmurs EXTREMITIES: Normal range of motion, no pitting or edema. No cyanosis. Gait normal, pt ambulates without difficulty BACK: Right lumbar paraspinal tenderness, right SI joint tenderness, no midline tenderness, no deformities or step-offs. No CVA tenderness. NEUROLOGICAL: Cranial nerves grossly intact. Normal speech, normal gait. No saddle anesthesia. No foot drop PSYCH: Normal mood, normal affect. SKIN: Warm, Dry, normal turgor, no rashes or lesions noted. - INFECTION CONTROL TRAVEL OUTSIDE OF THE [place] IN LAST 30 DAYS: No Course - Re-evaluation Re-evalutation: 08/25/17 11:13 Controlled substance database reviewed. Patient had a prescription for 30 day supply of oxymorphone 10 mg twice daily filled on August 07, 2017 as well as a prescription for Percocet 7.5/325 p.o. 3 times daily filled on August 07, 2017 for 30 day supply. Patient states she ran out of her Percocet pain medication 1 week ago, but believes that she still has the oxymorphone at home. Patient states she has only had the sciatica pain for the past 2 days although states that she hasn't been taking her pain medication as it has been prescribed. Patient advised that she will need to follow-up with her pain management doctor for any additional refills that she may need. Patient encouraged to take her oxymorphone as prescribed in addition to Tylenol [id number] for her pain symptoms. - Vital Signs Vital signs: Temp Pulse Resp BP Pulse Ox 97.5 F 97 20 185/86 H 98 08/25/17 10:02 08/25/17 10:02 08/25/17 10:02 08/25/17 10:02 08/25/17 10:02 Discharge - Discharge Clinical Impression: Sciatica Qualifiers: Laterality: right Qualified Code(s): M54.31 - Sciatica, right side Condition: Stable Disposition: HOME, SELF-CARE Instructions: Acetaminophen, Ice Packs ([facility]), Low Back Pain ([facility]), Sciatica ( [facility]), Steroid Medication Additional Instructions: Return immediately for any new or worsening symptoms Followup with your primary care provider, call tomorrow to make a followup appointment You may take Tylenol as well as lidocaine topical patches [id number] as directed to help with your pain symptoms. Follow-up with your pain management doctor to address any refills that you may need of your pain medication. It is important that you take your prescription medications as prescribed and do not take your pain medication any more frequently than it is written for. Prescriptions: Prednisone [Deltasone 20 mg Tablet] 2 tab PO DAILY 4 Days tablet Referrals: MAIKEL TYLER MD [NO LOCAL MD] - Follow up as needed
[2017-08-25] MEDS ORDERED: PREDNISONE 20 MG TABLET PO ONE (11:13)
[2017-08-25 11:28] VITALS: BP 168/80
== END 2017-08-25 11:35 | disposition home or self-care (01) ==
LOC: ER 09:58
DX: M54.31 Sciatica, right side (principal); I25.10 Atherosclerotic heart disease of native coronary artery without angina pectoris; E78.00 Pure hypercholesterolemia, unspecified; I10 Essential (primary) hypertension; E11.9 Type 2 diabetes mellitus without complications; Z90.710 Acquired absence of both cervix and uterus
CPT/HCPCS: 99283; 96372; J1170; A9270; J7512

== ENCOUNTER 2017-08-27 05:41 | Emergency (ER) | payer MEDICARE, MEDICAID ==
[2017-08-27] MEDS ORDERED: ACETAMINOPHEN 325 MG TABLET PO ONE (06:52)
[2017-08-27] MEDS ORDERED: KETOROLAC TROMETHAMINE 60 MG/2 ML SDV IM ONE (08:07)
--- NOTE | 2017-08-27 08:09 | ER Document Report ---
ED Medical Screen (RME) - General Chief Complaint: Back Pain Stated Complaint: BACK PAIN Time Seen by Provider: 08/27/17 08:05 Mode of Arrival: Ambulatory Information source: Patient Notes: Patient presents emergency department with complaints of right-sided sciatica pain. Reports history of sciatic pain. Reports this pain started 4 days ago. Denies trauma. Denies urinary bowel incontinence or retention. Reports she has not had this pain for 10 years. TRAVEL OUTSIDE OF THE [place] IN LAST 30 DAYS: No - Related Data Allergies/Adverse Reactions: prochlorperazine edisylate [From Compazine] Allergy (Intermediate, Verified 09:58) facial pain prochlorperazine maleate [From Compazine] Allergy (Intermediate, Verified 09:58) facial pain Past Medical History - Social History Chew tobacco use (# tins/day): No Frequency of alcohol use: None Drug Abuse: None - Past Medical History Cardiac Medical History: Reports: Hx Coronary Artery Disease, Hx Hypercholesterolemia, Hx Hypertension Pulmonary Medical History: Reports: Hx Asthma Neurological Medical History: Reports: Hx Migraine Endocrine Medical History: Reports: Hx Diabetes Mellitus Type 2 Renal/ Medical History: Reports: Hx Ovarian Cysts. Denies: Hx Peritoneal Dialysis Musculoskeltal Medical History: Reports Hx Arthritis, Reports Hx Musculoskeletal Deformity, Reports Hx Musculoskeletal Trauma Psychiatric Medical History: Reports: Hx Anxiety, Hx Depression - anxiety Traumatic Medical History: Reports: Hx Fractures - Shoulder ankle and elbow Past Surgical History: Reports: Hx Hysterectomy, Hx Orthopedic Surgery - Shoulder rotator cuff and carpal tunnel both wrist. Denies: Hx Pacemaker - Immunizations Hx Diphtheria, Pertussis, Tetanus Vaccination: Yes History of Influenza Vaccine for 12/2016 - 05/2017 Season: Yes Influenza Administration Date for 12/2016 - 05/2017 Season: 12/08/16 Physical Exam - Vital signs Vitals: Temp Pulse Resp BP Pulse Ox 97.4 F 101 H 24 H 179/100 H 97 08/27/17 05:57 08/27/17 05:57 08/27/17 05:57 08/27/17 05:57 08/27/17 05:57 Course - Vital Signs Vital signs: Temp Pulse Resp BP Pulse Ox 97.4 F 101 H 24 H 179/100 H 97 08/27/17 05:57 08/27/17 05:57 08/27/17 05:57 08/27/17 05:57 08/27/17 05:57 Doctor's Discharge - Discharge Referrals: JACKSON ROLDAN MD [Primary Care Provider] - Follow up as needed
--- NOTE | 2017-08-27 11:07 | ER Document Report ---
ED Neck/Back Problem - General Mode of Arrival: Ambulatory Information source: Patient TRAVEL OUTSIDE OF THE [place] IN LAST 30 DAYS: No - General Chief Complaint: Back Pain Stated Complaint: BACK PAIN Time Seen by Provider: 08/27/17 08:05 Notes: Patient is a 67-year-old female who presents to the emergency department today with complaints of right-sided "sciatica pain". Patient is in pain management, however she states she ran out of her pain medication due to increased pain. Patient was seen here 2 days ago for this and she was prescribed steroids however the patient states she thinks she "accidentally threw them away with other empty pill bottles." Patient denies any fevers or trauma to the area. ( ELIAN DELEON) - Related Data Allergies/Adverse Reactions: prochlorperazine edisylate [From Compazine] Allergy (Intermediate, Verified 09:58) facial pain prochlorperazine maleate [From Compazine] Allergy (Intermediate, Verified 09:58) facial pain Past Medical History - General Information source: Patient - Social History Smoking Status: Unknown if Ever Smoked Cigarette use (# per day): No Chew tobacco use (# tins/day): No Frequency of alcohol use: None Drug Abuse: None Lives with: Family Family History: Arthritis, CAD, CVA, DM, Hyperlipidemia, Hypertension, Malignancy, Thyroid Disfunction Patient has suicidal ideation: No Patient has homicidal ideation: No - Past Medical History Cardiac Medical History: Reports: Hx Coronary Artery Disease, Hx Hypercholesterolemia, Hx Hypertension Pulmonary Medical History: Reports: Hx Asthma Neurological Medical History: Reports: Hx Migraine Endocrine Medical History: Reports: Hx Diabetes Mellitus Type 2 Renal/ Medical History: Reports: Hx Ovarian Cysts Musculoskeltal Medical History: Reports Hx Arthritis, Reports Hx Musculoskeletal Deformity, Reports Hx Musculoskeletal Trauma Psychiatric Medical History: Reports: Hx Anxiety, Hx Depression - anxiety Traumatic Medical History: Reports: Hx Fractures - Shoulder ankle and elbow Past Surgical History: Reports: Hx Hysterectomy, Hx Orthopedic Surgery - Shoulder rotator cuff and carpal tunnel both wrist - Immunizations Hx Diphtheria, Pertussis, Tetanus Vaccination: Yes Hx Pneumococcal Vaccination: 03/09/09 Review of Systems - Review of Systems Constitutional: denies: Fever EENT: No symptoms reported Cardiovascular: No symptoms reported Respiratory: No symptoms reported Gastrointestinal: No symptoms reported Genitourinary: No symptoms reported Female Genitourinary: No symptoms reported Musculoskeletal: See HPI, Back pain - and leg pain Skin: No symptoms reported Hematologic/Lymphatic: No symptoms reported Neurological/Psychological: No symptoms reported -: Yes All other systems reviewed and negative Physical Exam - Vital signs Vitals: Temp Pulse Resp BP Pulse Ox 97.4 F 101 H 24 H 179/100 H 97 08/27/17 05:57 08/27/17 05:57 08/27/17 05:57 08/27/17 05:57 08/27/17 05:57 - Notes Notes: Physical Exam: General: Alert, appears well. HEENT: Normocephalic. Atraumatic. PERRL. Extraocular movements intact. Oropharynx clear. Neck: Supple. Non-tender. Respiratory: No respiratory distress. Clear and equal breath sounds bilaterally. Cardiovascular: Regular rate and rhythm. Abdominal: Normal Inspection. Non-tender. No distension. Normal Bowel Sounds. Back: Subjective anticipatory pain with light touch of right paraspinal region. No deformity or step off. Extremities: Moves all four extremities. Patient able to stand up and able to ambulate without difficulty. Upper extremities: Normal inspection. Normal ROM. Lower extremities: Normal inspection. No edema. Normal ROM. Neurological: Normal cognition. AAOx4. Normal speech. Psychological: Normal affect. Normal Mood. Skin: Warm. Dry. Normal color. (ELIAN DELEON) Course - Re-evaluation Re-evalutation: 08/27/17 11:17 Patient symptoms are suggestive of. She is experiences pain before and she does admit to running out of narcotic medication. I discussed that I am unable to fill her narcotics at this time and she is to follow-up with her doctor who prescribes is on a regular basis. I did discuss dividing her steroid dose pack and she states that she lost it yesterday. I also will provide her Robaxin to see if this helps with her symptoms. No red flags to suggest infection or cauda equina on examination and history. (ARNAUD GARCIA) - Vital Signs Vital signs: Temp Pulse Resp BP Pulse Ox 97.4 F 81 20 157/92 H 99 08/27/17 11:55 08/27/17 11:55 08/27/17 11:55 08/27/17 11:55 08/27/17 11:55 Discharge - Discharge Clinical Impression: Sciatic leg pain Condition: Good Disposition: HOME, SELF-CARE Additional Instructions: Please follow-up with your pain doctor as discussed for refill of your narcotic medication. Prescriptions: Methocarbamol [Robaxin 750 mg Tablet] 750 mg PO TID #40 tablet Prednisone [Deltasone 20 mg Tablet] 2 tab PO DAILY 5 Days #10 tablet Referrals: JACKSON ROLDAN MD [Primary Care Provider] - Follow up as needed Scribe Attestation: 08/29/17 15:05 I personally performed the services described documentation, reviewed and edited the documentation which was dictated to describe my presence, and it accurately records my words and actions. (ARNAUD GARCIA) Scribe Documentation - Scribe Written by Justa:: Justa Cedillo, 08/27/2017 1516 acting as scribe for :: Gary
[2017-08-27] MEDS ORDERED: FENTANYL CITRATE INJ/PF 100 MCG/2 ML AMPUL IM ONE (11:43)
[2017-08-27 12:20] VITALS: BP 157/92
== END 2017-08-27 12:25 | disposition home or self-care (01) ==
LOC: ER 05:41
DX: M54.31 Sciatica, right side (principal); M54.9 Dorsalgia, unspecified; I25.10 Atherosclerotic heart disease of native coronary artery without angina pectoris; I10 Essential (primary) hypertension; J45.909 Unspecified asthma, uncomplicated; E11.9 Type 2 diabetes mellitus without complications
CPT/HCPCS: 99283; 96372; A9270; J1885; J3010

== ENCOUNTER 2017-12-01 15:05 | Emergency (ER) | payer MEDICAID, MEDICARE ==
[2017-12-01] MEDS ORDERED: FENTANYL CITRATE INJ/PF 100 MCG/2 ML AMPUL IV ONE ×2 (16:49→19:03)
--- NOTE | 2017-12-01 16:49 | ER Document Report ---
ED Medical Screen (RME) - General Chief Complaint: Flank Pain Stated Complaint: LEFT SIDE PAIN Time Seen by Provider: 12/01/17 15:35 Notes: 67-year-old female to emergency department with severe left flank pain. States this has been going on for several days. 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 Had a shot of Toradol and it helped a little bit but we will get severe pain. Denies any rash fever chills or other issues at this time. Denies any dysuria I have greeted and performed a rapid initial assessment of this patient. A comprehensive ED assessment and evaluation of the patient, analysis of test results and completion of the medical decision making process will be conducted by additional ED providers. TRAVEL OUTSIDE OF THE [place] IN LAST 30 DAYS: No - Related Data Allergies/Adverse Reactions: prochlorperazine edisylate [From Compazine] Allergy (Intermediate, Verified 16:43) facial pain prochlorperazine maleate [From Compazine] Allergy (Intermediate, Verified 16:43) facial pain Past Medical History - Social History Chew tobacco use (# tins/day): No Frequency of alcohol use: None Drug Abuse: None - Past Medical History Cardiac Medical History: Reports: Hx Coronary Artery Disease, Hx Hypercholesterolemia, Hx Hypertension Pulmonary Medical History: Reports: Hx Asthma Neurological Medical History: Reports: Hx Migraine Endocrine Medical History: Reports: Hx Diabetes Mellitus Type 2 Renal/ Medical History: Reports: Hx Ovarian Cysts. Denies: Hx Peritoneal Dialysis Musculoskeltal Medical History: Reports Hx Arthritis, Reports Hx Musculoskeletal Deformity, Reports Hx Musculoskeletal Trauma Psychiatric Medical History: Reports: Hx Anxiety, Hx Depression - anxiety Traumatic Medical History: Reports: Hx Fractures - Shoulder ankle and elbow Past Surgical History: Reports: Hx Hysterectomy, Hx Orthopedic Surgery - Shoulder rotator cuff and carpal tunnel both wrist. Denies: Hx Pacemaker - Immunizations Hx Diphtheria, Pertussis, Tetanus Vaccination: Yes History of Influenza Vaccine for 12/2016 - 05/2017 Season: Yes Influenza Administration Date for 12/2016 - 05/2017 Season: 12/08/16 Physical Exam - Vital signs Vitals: Temp Pulse Resp BP Pulse Ox 97.4 F 110 H 18 188/121 H 98 12/01/17 15:08 12/01/17 15:08 12/01/17 15:08 12/01/17 15:08 12/01/17 15:08 Course - Vital Signs Vital signs: Temp Pulse Resp BP Pulse Ox 97.4 F 110 H 18 188/121 H 98 12/01/17 15:08 12/01/17 15:08 12/01/17 15:08 12/01/17 15:08 12/01/17 15:08 Doctor's Discharge - Discharge Referrals: JACKSON ROLDAN MD [Primary Care Provider] - Follow up as needed
[2017-12-01 16:59] LABS: ABSOLUTE BASOPHILS # (AUTO) 0.1 10^3/uL (0.0-0.2); ABSOLUTE EOSINOPHILS # (AUTO) 0.1 10^3/uL (0.0-0.6); ABSOLUTE LYMPHOCYTES (AUTO) 2.4 10^3/uL (0.5-4.7); ABSOLUTE MONOCYTES (AUTO) 0.6 10^3/uL (0.1-1.4); ABSOLUTE NEUT (AUTO) 3.7 10^3/uL (1.7-8.2); BASOPHILS % (AUTO) 0.8 % (0-2); EOSINOPHILS % (AUTO) 1.7 % (0-6); HEMATOCRIT 42.4 % (36.0-47.0); HEMOGLOBIN 14.8 g/dL (12.0-15.5); LYMPHOCYTES % (AUTO) 35.5 % (13-45); MEAN CORPUSCULAR HEMOGLOBIN 33.2 pg (27.0-33.4); MEAN CORPUSCULAR HGB CONC 34.9 g/dL (32.0-36.0); MEAN CORPUSCULAR VOLUME 95 fl (80-97); MONOCYTES % (AUTO) 8.3 % (3-13); PLATELET COUNT 302 10^3/uL (150-450); RED BLOOD COUNT 4.46 10^6/uL (3.72-5.28); SEGMENTED NEUTROPHILS % (AUTO) 53.7 % (42-78); TOTAL CELLS COUNTED % (AUTO) 100 %; WHITE BLOOD COUNT 6.9 10^3/uL (4.0-10.5)
--- NOTE | 2017-12-01 17:09 | RADIOLOGY REPORT (SQ) ---
EXAM DESCRIPTION: CHEST 2 VIEWS COMPLETED DATE/TIME: 12/01/2017 5:00 pm REASON FOR STUDY: left post chest pain COMPARISON: 01/03/2017 EXAM PARAMETERS: NUMBER OF VIEWS: two views TECHNIQUE: Digital Frontal and Lateral radiographic views of the chest acquired. RADIATION DOSE: NA LIMITATIONS: none FINDINGS: LUNGS AND PLEURA: No opacities, masses or pneumothorax. No pleural effusion. MEDIASTINUM AND HILAR STRUCTURES: No masses or contour abnormalities. HEART AND VASCULAR STRUCTURES: Heart normal size. No evidence for failure. BONES: No acute findings. HARDWARE: None in the chest. OTHER: No other significant finding. IMPRESSION: NO ACUTE RADIOGRAPHIC FINDING IN THE CHEST. TECHNICAL DOCUMENTATION: JOB ID: [id number] [employer]- All Rights Reserved Reading location - IP/workstation name: [email or web address]
[2017-12-01 17:14] LABS: APPEARANCE,URINE CLEAR; BILIRUBIN,URINE NEGATIVE (NEGATIVE); COLOR,URINE YELLOW; GLUCOSE, URINE 50 mg/dL (NEGATIVE); KETONES,URINE NEGATIVE (NEGATIVE); LEUKOCYTE ESTERASE,URINE NEGATIVE (NEGATIVE); NITRITE,URINE NEGATIVE (NEGATIVE); PROTEIN,URINE 100 mg/dL (NEGATIVE); URINE SPECIFIC GRAVITY 1.017; UROBILINOGEN,URINE NEGATIVE mg/dL (<2.0)
[2017-12-01 17:17] LABS: ALANINE AMINOTRANSFERASE 10 U/L (9-52); ALBUMIN 4.2 g/dL (3.5-5.0); ALKALINE PHOSPHATASE 95 U/L (38-126); ANION GAP 9 (5-19); ASPARTATE AMINO TRANSFERASE 22 U/L (14-36); BILIRUBIN,DIRECT 0.5 mg/dL (0.0-0.4); BLOOD UREA NITROGEN 16 mg/dL (7-20); CALCIUM 9.5 mg/dL (8.4-10.2); CARBON DIOXIDE 28 mmol/L (22-30); CHLORIDE 100 mmol/L (98-107); GLUCOSE 179 mg/dL (75-110); POTASSIUM 4.2 mmol/L (3.6-5.0); TOTAL PROTEIN 7.9 g/dL (6.3-8.2)
[2017-12-01] MEDS ORDERED: LIDOCAINE 5% (700 MG) TRANSDERMAL ADH..PATCH TP ONE (19:03)
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
[2017-12-01 21:06] VITALS: BP 153/85
== END 2017-12-01 21:06 | disposition home or self-care (01) ==
LOC: ER 15:05
DX: M54.5 Low back pain (principal); E11.40 Type 2 diabetes mellitus with diabetic neuropathy, unspecified; I25.10 Atherosclerotic heart disease of native coronary artery without angina pectoris; I10 Essential (primary) hypertension; J45.909 Unspecified asthma, uncomplicated; Z79.891 Long term (current) use of opiate analgesic; Z88.8 Allergy status to other drugs, medicaments and biological substances
CPT/HCPCS: 96376; 99284; 96374; 36415; 85025; 80053; 81001; 71046; J3010

== ENCOUNTER 2018-04-03 00:06 | Emergency (ER) | payer MEDICARE, MEDICAID ==
[2018-04-03 00:44] VITALS: BP 164/83
[2018-04-03] MEDS ORDERED: OXYCODONE HCL IR 5 MG TABLET PO ONE (02:13)
[2018-04-03] MEDS ORDERED: ONDANSETRON 4 MG TAB.RAPDIS PO ONE (02:13)
--- NOTE | 2018-04-03 02:16 | ER Document Report ---
ED Medical Screen (RME) - General Chief Complaint: Abdominal Pain Stated Complaint: ABDOMINAL PAIN/NAUSEA Time Seen by Provider: 04/03/18 02:13 Notes: 67-year-old female with chief complaint of sharp pain that is in both her left abdomen and in her left lower back. She states pain is worsened over the past 3 days and she has begun vomiting. She denies fever, chest pain, dysuria, abnormal stools. History of chronic back pain on pain management, pain medicine is not helping. TRAVEL OUTSIDE OF THE [place] IN LAST 30 DAYS: No - Related Data Allergies/Adverse Reactions: prochlorperazine edisylate [From Compazine] Allergy (Intermediate, Verified 12/01/17 16:43) facial pain prochlorperazine maleate [From Compazine] Allergy (Intermediate, Verified 12/01/17 16:43) facial pain Past Medical History - Past Medical History Cardiac Medical History: Reports: Hx Coronary Artery Disease, Hx Hypercholesterolemia, Hx Hypertension Pulmonary Medical History: Reports: Hx Asthma Neurological Medical History: Reports: Hx Migraine Endocrine Medical History: Reports: Hx Diabetes Mellitus Type 2 Renal/ Medical History: Reports: Hx Ovarian Cysts. Denies: Hx Peritoneal Dialysis Musculoskeltal Medical History: Reports Hx Arthritis, Reports Hx Musculoskeletal Deformity, Reports Hx Musculoskeletal Trauma Psychiatric Medical History: Reports: Hx Anxiety, Hx Depression - anxiety Traumatic Medical History: Reports: Hx Fractures - Shoulder ankle and elbow Past Surgical History: Reports: Hx Hysterectomy, Hx Orthopedic Surgery - Shoulder rotator cuff and carpal tunnel both wrist. Denies: Hx Pacemaker - Immunizations Hx Diphtheria, Pertussis, Tetanus Vaccination: Yes History of Influenza Vaccine for 12/2016 - 05/2017 Season: Yes Influenza Administration Date for 12/2016 - 05/2017 Season: 12/08/16 Physical Exam - Vital signs Vitals: Temp Pulse Resp BP Pulse Ox 98.3 F 106 H 16 164/83 H 95 04/03/18 00:43 04/03/18 00:43 04/03/18 00:43 04/03/18 00:43 04/03/18 00:43 - Abdominal Tenderness: Tender - Winces with palpation of the general left abdomen, nonspecific; right abdomen benign. Course - Vital Signs Vital signs: Temp Pulse Resp BP Pulse Ox 98.3 F 106 H 16 164/83 H 95 04/03/18 00:43 04/03/18 00:43 04/03/18 00:43 04/03/18 00:43 04/03/18 00:43
[2018-04-03 02:48] LABS: ABSOLUTE BASOPHILS # (AUTO) 0.1 10^3/uL (0.0-0.2); ABSOLUTE EOSINOPHILS # (AUTO) 0.1 10^3/uL (0.0-0.6); ABSOLUTE LYMPHOCYTES (AUTO) 2.2 10^3/uL (0.5-4.7); ABSOLUTE MONOCYTES (AUTO) 0.6 10^3/uL (0.1-1.4); ABSOLUTE NEUT (AUTO) 4.6 10^3/uL (1.7-8.2); BASOPHILS % (AUTO) 0.7 % (0-2); EOSINOPHILS % (AUTO) 1.5 % (0-6); LYMPHOCYTES % (AUTO) 29.1 % (13-45); MEAN CORPUSCULAR HEMOGLOBIN 32.9 pg (27.0-33.4); MEAN CORPUSCULAR VOLUME 94 fl (80-97); MONOCYTES % (AUTO) 7.5 % (3-13); PLATELET COUNT 307 10^3/uL (150-450); RED BLOOD COUNT 4.25 10^6/uL (3.72-5.28); RED CELL DISTRIBUTION WIDTH 12.7 % (11.5-14.0); SEGMENTED NEUTROPHILS % (AUTO) 61.2 % (42-78); TOTAL CELLS COUNTED % (AUTO) 100 %; WHITE BLOOD COUNT 7.5 10^3/uL (4.0-10.5)
[2018-04-03 02:59] LABS: ALANINE AMINOTRANSFERASE 29 U/L (9-52); ALBUMIN 4.2 g/dL (3.5-5.0); ALKALINE PHOSPHATASE 106 U/L (38-126); ANION GAP 8 (5-19); ASPARTATE AMINO TRANSFERASE 16 U/L (14-36); BILIRUBIN,DIRECT 0.1 mg/dL (0.0-0.4); BILIRUBIN,TOTAL 0.7 mg/dL (0.2-1.3); BLOOD UREA NITROGEN 19 mg/dL (7-20); CALCIUM 9.7 mg/dL (8.4-10.2); CARBON DIOXIDE 25 mmol/L (22-30); CHLORIDE 103 mmol/L (98-107); GLUCOSE 364 mg/dL (75-110); LIPASE 109.3 U/L (23-300); POTASSIUM 4.5 mmol/L (3.6-5.0); SODIUM 135.7 mmol/L (137-145); TOTAL PROTEIN 6.8 g/dL (6.3-8.2)
[2018-04-03] MEDS ORDERED: HYDROMORPHONE HCL INJ/PF 2 MG/ML AMPULE IV ONE ×2 (03:33→05:37)
[2018-04-03] MEDS ORDERED: NORMAL SALINE 1000 ML 1,000 ML IV ONE (03:34)
--- NOTE | 2018-04-03 03:35 | ER Document Report ---
ED GI/ - General Chief Complaint: Abdominal Pain Stated Complaint: ABDOMINAL PAIN/NAUSEA Time Seen by Provider: 04/03/18 02:13 Notes: Patient is a 67-year-old female that comes to the emergency department with chief complaint of a sharp pain that is both in her left abdomen and her left flank in the lower part of her back. She states pain has worsened over the past 3 days, she has vomited twice. She is moving her bowels, denies bloody bowel movements. She denies fever, chest pain, dysuria. Past medical history of chronic back pain on opiates, type 2 diabetes, hypertension, anxiety, hyperlipidemia, hysterectomy. TRAVEL OUTSIDE OF THE [place] IN LAST 30 DAYS: No - Related Data Allergies/Adverse Reactions: prochlorperazine edisylate [From Compazine] Allergy (Intermediate, Verified 12/01/17 16:43) facial pain prochlorperazine maleate [From Compazine] Allergy (Intermediate, Verified 12/01/17 16:43) facial pain Past Medical History - General Information source: Patient - Social History Smoking Status: Former Smoker Chew tobacco use (# tins/day): No Frequency of alcohol use: None Drug Abuse: None Lives with: Alone Family History: Arthritis, CAD, CVA, DM, Hyperlipidemia, Hypertension, Malignancy, Thyroid Disfunction Patient has suicidal ideation: No Patient has homicidal ideation: No - Past Medical History Cardiac Medical History: Reports: Hx Hypercholesterolemia, Hx Hypertension Pulmonary Medical History: Reports: Hx Asthma Neurological Medical History: Reports: Hx Migraine Endocrine Medical History: Reports: Hx Diabetes Mellitus Type 2 Renal/ Medical History: Reports: Hx Ovarian Cysts. Denies: Hx Peritoneal Dialysis Musculoskeletal Medical History: Reports Hx Arthritis, Reports Hx Musculoskeletal Deformity, Reports Hx Musculoskeletal Trauma Psychiatric Medical History: Reports: Hx Anxiety, Hx Depression - anxiety Traumatic Medical History: Reports: Hx Fractures - Shoulder ankle and elbow Past Surgical History: Reports: Hx Hysterectomy, Hx Orthopedic Surgery - Shoulder rotator cuff and carpal tunnel both wrist. Denies: Hx Pacemaker - Immunizations Hx Diphtheria, Pertussis, Tetanus Vaccination: Yes Hx Pneumococcal Vaccination: 03/09/09 Review of Systems - Review of Systems Constitutional: No symptoms reported EENT: No symptoms reported Cardiovascular: No symptoms reported Respiratory: No symptoms reported Gastrointestinal: See HPI Genitourinary: See HPI Female Genitourinary: No symptoms reported Musculoskeletal: See HPI Skin: No symptoms reported Hematologic/Lymphatic: No symptoms reported Neurological/Psychological: No symptoms reported Physical Exam - Vital signs Vitals: Temp Pulse Resp BP Pulse Ox 98.3 F 106 H 16 164/83 H 95 04/03/18 00:43 04/03/18 00:43 04/03/18 00:43 04/03/18 00:43 04/03/18 00:43 - Notes Notes: GENERAL: Alert, interacts well. Restless and appears uncomfortable. HEAD: Normocephalic, atraumatic. EYES: Pupils equal, round, and reactive to light. Extraocular movements intact. ENT: Oral mucosa moist, tongue midline. Oropharynx unremarkable. Airway patent. Nares patent, no nasal septal hematoma, TM's intact. NECK: Full range of motion. Supple. Trachea midline. LUNGS: Clear to auscultation bilaterally, no wheezes, rales, or rhonchi. No respiratory distress. HEART: Regular rate and rhythm. No murmur ABDOMEN: Some tenderness in the left lower abdomen and mid abdomen. Nonspecific. No guarding. No rigidity. No rebound tenderness. GENITOURINARY: Deferred EXTREMITIES: Moves all 4 extremities spontaneously. No edema, normal radial and dorsalis pedis pulses bilaterally. No cyanosis. BACK: no cervical, thoracic, lumbar midline tenderness. No saddle anesthesia, no rmal distal neurovascular exam. NEUROLOGICAL: Alert and oriented x3. Normal speech. [cranial nerves II through XII grossly intact]. PSYCH: Normal affect, normal mood. SKIN: Warm, dry, normal turgor. No rashes or lesions noted. Course - Re-evaluation Re-evalutation: Patient does have some generalized tenderness over the left abdomen although this is nonspecific and on reevaluation I do not appreciate any tenderness. Now she is only complaining of pain in her back. I did review workup from triage, CBC unremarkable, chemistry shows hyperglycemia without acidosis, urinalysis shows dehydration with elevated specific gravity but no infection. CAT scan showing no acute abnormality in regards to the back or the abdomen. Review of previous records show that patient has had similar flareups in the past. On additional evaluation I suspect she does have mild herniation of disc. No spinal cord compression symptoms. After pain medication patient is very well-appearing. She does ask for an additional dose before she goes home, states she has done very well with this in the past, states she knows how to care for this. She states she has pain management follow-up. I discussed with strict return precautions for any developing symptoms in regards to her abdomen or back. Patient states understanding and agreement. Stable at time of discharge. - Vital Signs Vital signs: Temp Pulse Resp BP Pulse Ox 98.3 F 106 H 16 164/83 H 98 04/03/18 00:43 04/03/18 00:43 04/03/18 00:43 04/03/18 00:43 04/03/18 04:00 - Laboratory Result Diagrams: 04/03/18 02:35 04/03/18 02:35 Laboratory results interpreted by me: 04/03/18 04/03/18 02:35 02:40 Sodium 135.7 L Glucose 364 H Urine Protein 100 H Urine Glucose (UA) >=500 H Urine Ketones TRACE H Discharge - Discharge Clinical Impression: Flank pain Abdominal pain Qualifiers: Abdominal location: lower abdomen, unspecified Qualified Code(s): R10.30 - Lower abdominal pain, unspecified Condition: Stable Disposition: HOME, SELF-CARE Additional Instructions: Your workup shows elevated blood sugar and some dehydration, however the remaining workup does not show any concerning N normalities. Your pain appears to be most likely from herniated disc pain in your lower back. Continue your medications, place heat on the area, rest. Symptoms should resolve with time. Follow-up with your pain management provider for additional management. Return if you worsen including fever, vomiting, numbness, severe worsening pain, inability to urinate, losing control your bowels, or any other concerning or worsening symptoms.
[2018-04-03 04:54] LABS: APPEARANCE,URINE CLEAR; BILIRUBIN,URINE NEGATIVE (NEGATIVE); COLOR,URINE YELLOW; GLUCOSE, URINE >=500 mg/dL (NEGATIVE); KETONES,URINE TRACE mg/dL (NEGATIVE); LEUKOCYTE ESTERASE,URINE NEGATIVE (NEGATIVE); NITRITE,URINE NEGATIVE (NEGATIVE); PROTEIN,URINE 100 mg/dL (NEGATIVE); URINE SPECIFIC GRAVITY 1.035; UROBILINOGEN,URINE NEGATIVE mg/dL (<2.0)
--- NOTE | 2018-04-03 05:13 | RADIOLOGY REPORT (SQ) ---
EXAM DESCRIPTION: CT ABDOMEN PELVIS WITH IV CONTRAST COMPLETED DATE/TME: 04/03/2018 02:14 CLINICAL HISTORY: CLINICAL HISTORY:67 years Female, sharp left abd and flank pain, vomiting Comparison: October 31, 2013 TECHNIQUE: Contiguous axial CT images of the abdomen and pelvis were obtained. Sagittal and coronal reformats were reviewed. This exam was performed according to our departmental dose-optimization program, which includes automated exposure control, adjustment of the mA and/or kV according to patient size and/or use of iterative reconstruction technique. FINDINGS: Lung bases: Clear. Liver:Unremarkable. Probable hemangioma periphery right hepatic lobe. Gallbladder:Unremarkable. No gallstones. No gallbladder wall thickening or pericholecystic fluid. Spleen:Unremarkable Pancreas: Pancreas is unremarkable. Adrenal glands:Within normal limits. Kidneys/ureters: Small cystic changes in both kidneys. Nonspecific perinephric inflammatory stranding bilaterally. No hydronephrosis. No nephrolithiasis. Stomach/small bowel/colon: Stomach is unremarkable. Small bowel is unremarkable. Colon is unremarkable. Appendix: No evidence of appendicitis. Peritoneum: No free fluid. Vascular structures: within normal limits Lymph nodes: No abnormal lymph nodes. Bladder:Unremarkable. Pelvic organs: No acute abnormality Bones: No acute osseous abnormality. Soft tissues: Unremarkable.. IMPRESSION: No acute intra-abdominal abnormality.
== END 2018-04-03 06:15 | disposition home or self-care (01) ==
LOC: ER 00:06
DX: R10.9 Unspecified abdominal pain (principal); R10.30 Lower abdominal pain, unspecified; R11.10 Vomiting, unspecified; M54.5 Low back pain; G89.29 Other chronic pain; Z79.891 Long term (current) use of opiate analgesic; J45.909 Unspecified asthma, uncomplicated; E11.65 Type 2 diabetes mellitus with hyperglycemia; I10 Essential (primary) hypertension; Z90.710 Acquired absence of both cervix and uterus; Z88.8 Allergy status to other drugs, medicaments and biological substances; Z87.891 Personal history of nicotine dependence
CPT/HCPCS: 96376; 99284; 96361; 96374; 36415; 83690; 85025; 80053; 81001; 74177; A9270 ×2; J1170; J7030; S0119

== ENCOUNTER 2019-01-20 14:30 | Emergency (ER) | payer MEDICARE, MEDICAID ==
[2019-01-20] MEDS ORDERED: FENTANYL CITRATE INJ/PF 100 MCG/2 ML AMPUL IV ONE (14:55)
--- NOTE | 2019-01-20 14:57 | ER Document Report ---
ED Medical Screen (RME) - General Chief Complaint: Chest Pain Stated Complaint: CHEST PAIN Time Seen by Provider: 01/20/19 14:50 Notes: 68-year-old female with hypertension and untreated insulin-dependent diabetes mellitus for the past 2 to 3 months presents to the emergency department with chief complaint of chest pain that started just prior to arrival. Patient states that the pain is in her central chest, radiates up to her right shoulder and through to her back and sometimes to her left shoulder blade. Denies acute shortness of breath or dyspnea on exertion, nausea or vomiting, diaphoresis. Exam: Well-appearing in no acute distress, lungs are clear to auscultation all arango, S1-S2 heard tachycardia with regular rhythm I have greeted and performed a rapid initial assessment of this patient. A comprehensive ED assessment and evaluation of the patient, analysis of test results and completion of medical decision making process will be conducted by an additional ED providers. TRAVEL OUTSIDE OF THE [place] IN LAST 30 DAYS: No - Related Data Allergies/Adverse Reactions: prochlorperazine edisylate [From Compazine] Allergy (Intermediate, Verified 01/20/19 14:45) facial pain prochlorperazine maleate [From Compazine] Allergy (Intermediate, Verified 01/20/19 14:45) facial pain Past Medical History - Social History Chew tobacco use (# tins/day): No Frequency of alcohol use: None Drug Abuse: None - Past Medical History Cardiac Medical History: Reports: Hx Coronary Artery Disease, Hx Hypercholesterolemia, Hx Hypertension Pulmonary Medical History: Reports: Hx Asthma Neurological Medical History: Reports: Hx Migraine Endocrine Medical History: Reports: Hx Diabetes Mellitus Type 2 Renal/ Medical History: Reports: Hx Ovarian Cysts. Denies: Hx Peritoneal Dialysis Musculoskeltal Medical History: Reports Hx Arthritis, Reports Hx Musculoskeletal Deformity, Reports Hx Musculoskeletal Trauma Psychiatric Medical History: Reports: Hx Anxiety, Hx Depression - anxiety Traumatic Medical History: Reports: Hx Fractures - Shoulder ankle and elbow Past Surgical History: Reports: Hx Hysterectomy, Hx Orthopedic Surgery - Shoulder rotator cuff and carpal tunnel both wrist. Denies: Hx Pacemaker - Immunizations Hx Diphtheria, Pertussis, Tetanus Vaccination: Yes Physical Exam - Vital signs Vitals: Temp Pulse Resp BP Pulse Ox 97.6 F 101 H 20 161/97 H 100 01/20/19 14:41 01/20/19 14:41 01/20/19 14:41 01/20/19 14:41 01/20/19 14:41 Course - Vital Signs Vital signs: Temp Pulse Resp BP Pulse Ox 97.6 F 101 H 20 161/97 H 100 01/20/19 14:41 01/20/19 14:41 01/20/19 14:41 01/20/19 14:41 01/20/19 14:41
--- NOTE | 2019-01-20 15:24 | RADIOLOGY REPORT (SQ) ---
EXAM DESCRIPTION: CHEST 2 VIEWS COMPLETED DATE/TIME: 01/20/2019 3:14 pm REASON FOR STUDY: Chest pain COMPARISON: PA and lateral views of the chest from 12/01/2017. EXAM PARAMETERS: NUMBER OF VIEWS: two views TECHNIQUE: Digital Frontal and Lateral radiographic views of the chest acquired. RADIATION DOSE: NA LIMITATIONS: none FINDINGS: LUNGS AND PLEURA: No consolidation, pleural effusion or pneumothorax. MEDIASTINUM AND HILAR STRUCTURES: No mediastinal or hilar contour abnormality. HEART AND VASCULAR STRUCTURES: The cardiac silhouette and pulmonary vasculature are within normal puentes its. BONES: No acute findings. HARDWARE: Shoulder arthroplasty hardware on the right. OTHER: No other finding. IMPRESSION: No acute cardiopulmonary process. TECHNICAL DOCUMENTATION: JOB ID: [id number] [employer]- All Rights Reserved Reading location - IP/workstation name: [email or web address]
[2019-01-20 15:37] LABS: ABSOLUTE BASOPHILS # (AUTO) 0.1 10^3/uL (0.0-0.2); ABSOLUTE EOSINOPHILS # (AUTO) 0.1 10^3/uL (0.0-0.6); ABSOLUTE LYMPHOCYTES (AUTO) 2.5 10^3/uL (0.5-4.7); ABSOLUTE MONOCYTES (AUTO) 0.6 10^3/uL (0.1-1.4); ABSOLUTE NEUT (AUTO) 5.4 10^3/uL (1.7-8.2); BASOPHILS % (AUTO) 0.9 % (0-2); EOSINOPHILS % (AUTO) 1.2 % (0-6); HEMATOCRIT 43.2 % (36.0-47.0); HEMOGLOBIN 15.1 g/dL (12.0-15.5); LYMPHOCYTES % (AUTO) 28.9 % (13-45); MEAN CORPUSCULAR HEMOGLOBIN 33.1 pg (27.0-33.4); MEAN CORPUSCULAR HGB CONC 35.1 g/dL (32.0-36.0); MEAN CORPUSCULAR VOLUME 95 fl (80-97); MONOCYTES % (AUTO) 6.8 % (3-13); PLATELET COUNT 367 10^3/uL (150-450); RED BLOOD COUNT 4.57 10^6/uL (3.72-5.28); RED CELL DISTRIBUTION WIDTH 13.2 % (11.5-14.0); SEGMENTED NEUTROPHILS % (AUTO) 62.2 % (42-78); TOTAL CELLS COUNTED % (AUTO) 100 %; WHITE BLOOD COUNT 8.6 10^3/uL (4.0-10.5)
[2019-01-20 16:16] LABS: ALBUMIN 4.3 g/dL (3.5-5.0); ALKALINE PHOSPHATASE 135 U/L (38-126); ANION GAP 12 (5-19); ASPARTATE AMINO TRANSFERASE 23 U/L (14-36); BILIRUBIN,DIRECT 0.1 mg/dL (0.0-0.4); BILIRUBIN,TOTAL 0.5 mg/dL (0.2-1.3); BLOOD UREA NITROGEN 22 mg/dL (7-20); CALCIUM 9.8 mg/dL (8.4-10.2); CARBON DIOXIDE 25 mmol/L (22-30); CHLORIDE 97 mmol/L (98-107); POTASSIUM 4.6 mmol/L (3.6-5.0)
[2019-01-20 16:27] LABS: GLUCOSE 416 mg/dL (75-110)
[2019-01-20] MEDS ORDERED: ASPIRIN 81 MG TABLET, CHEWABLE PO ONE (16:31)
[2019-01-20] MEDS ORDERED: NITROGLYCERIN/D5W 0 MG/0 ML RTUINJ IV ONE (16:46)
[2019-01-20] MEDS ORDERED: NITROGLYCERIN 0.4 MG/TAB 25 TAB/BOTTLE ONE (16:48)
[2019-01-20] MEDS ORDERED: METOPROLOL TARTRATE PF/INJ 5 MG/5 ML SDV IV ONE (16:51)
[2019-01-20] MEDS ORDERED: CLOPIDOGREL BISULFATE 300 MG TABLET PO ONE (16:51)
[2019-01-20] MEDS ORDERED: INSULIN REG, HUMAN 100 UNIT/ML 3 ML VIAL (PYX) IV ONE (16:52)
[2019-01-20] MEDS: NITROGLYCERIN 0.4 MG/TAB 25 TAB/BOTTLE SL PRN ×2 (16:56→17:01)
[2019-01-20] MEDS ORDERED: ATORVASTATIN CALCIUM 80 MG TABLET PO ONE (17:00)
[2019-01-20] MEDS ORDERED: ENOXAPARIN SODIUM INJ 100 MG/1 ML DISP.SYRIN SUBCUT SCH (17:00)
[2019-01-20] MEDS ORDERED: NORMAL SALINE 1000 ML 1,000 ML IV ONE ×2 (17:01→17:20)
--- NOTE | 2019-01-20 17:06 | ER Document Report ---
ED General - General Chief Complaint: Chest Pain Stated Complaint: CHEST PAIN Time Seen by Provider: 01/20/19 14:50 Primary Care Provider: JACKSON ROLDAN MD [Primary Care Provider] - Follow up as needed TRAVEL OUTSIDE OF THE [place] IN LAST 30 DAYS: No - HPI Notes: Patient is a 68-year-old female with a history of hypertension, hyperlipidemia, chronic pain, insulin-dependent diabetes (not currently taking her insulin) who presents complaining of having sternal chest pain that radiated up into her jaw that began last night. Patient states that the pain was initially intermittent, but worsened this morning which prompted her to come to the emergency department for evaluation. Patient states that when the pain hits she does have some shortness of breath associated. She has had decreased p.o. intake today. She is otherwise urinating normally, and has some loose stool. No history of CAD, MO, CVA, DVT, PE. Denies any headache, fever, neck pain, URI, sore throat, palpitations, syncope, cough, wheeze, dyspnea, abdominal pain, nausea/vomiting/diarrhea, urinary retention, dysuria, hematuria, or rash. - Related Data Allergies/Adverse Reactions: prochlorperazine edisylate [From Compazine] Allergy (Intermediate, Verified 01/20/19 14:45) facial pain prochlorperazine maleate [From Compazine] Allergy (Intermediate, Verified 01/20/19 14:45) facial pain Past Medical History - Social History Smoking Status: Never Smoker Chew tobacco use (# tins/day): No Frequency of alcohol use: None Drug Abuse: None Family History: Arthritis, CAD, CVA, DM, Hyperlipidemia, Hypertension, Malignancy, Thyroid Disfunction Patient has suicidal ideation: No Patient has homicidal ideation: No - Past Medical History Cardiac Medical History: Reports: Hx Coronary Artery Disease, Hx Hy percholesterolemia, Hx Hypertension Pulmonary Medical History: Reports: Hx Asthma Neurological Medical History: Reports: Hx Migraine Endocrine Medical History: Reports: Hx Diabetes Mellitus Type 2 Renal/ Medical History: Reports: Hx Ovarian Cysts. Denies: Hx Peritoneal Dialysis Musculoskeletal Medical History: Reports Hx Arthritis, Reports Hx Musculoskeletal Deformity, Reports Hx Musculoskeletal Trauma Psychiatric Medical History: Reports: Hx Anxiety, Hx Depression - anxiety Traumatic Medical History: Reports: Hx Fractures - Shoulder ankle and elbow Past Surgical History: Reports: Hx Hysterectomy, Hx Orthopedic Surgery - Shoulder rotator cuff and carpal tunnel both wrist. Denies: Hx Pacemaker - Immunizations Hx Diphtheria, Pertussis, Tetanus Vaccination: Yes Hx Pneumococcal Vaccination: 03/09/09 Review of Systems - Review of Systems -: Yes All other systems reviewed and negative Physical Exam - Vital signs Vitals: Temp Pulse Resp BP Pulse Ox 97.6 F 101 H 20 161/97 H 100 01/20/19 14:41 01/20/19 14:41 01/20/19 14:41 01/20/19 14:41 01/20/19 14:41 - Notes Notes: PHYSICAL EXAMINATION: GENERAL: Well-appearing, well-nourished and in no acute distress. A&Ox4. answers questions appropriately. HEAD: Atraumatic, normocephalic. EYES: Pupils equal round and reactive to light, extraocular movements intact, sclera anicteric, conjunctiva are normal. ENT: Nares patent and without discharge. oropharynx clear without exudates. No tonsilar hypertrophy or erythema. Moist mucous membranes. NECK: Normal range of motion, supple without lymphadenopathy LUNGS: Breath sounds clear to auscultation bilaterally and equal. No wheezes rales or rhonchi. HEART: Regular rate and rhythm without murmurs, rubs, gallops. ABDOMEN: Soft, nontender, nondistended abdomen. No guarding, no rebound. Normal bowel sounds present. No CVA tenderness bilaterally. Musculoskeletal: FROM to passive/active. Strength 5+/5. Wai neg. No asymmetry to LE's. Extremities: No cyanosis, clubbing, or edema b/l. Peripheral pulses 2+. Ca pillary refill less than 3 seconds. NEUROLOGICAL: Normal speech, normal gait. PSYCH: Normal mood, normal affect. SKIN: Warm, Dry, normal turgor, no rashes or lesions noted. Course - Re-evaluation Re-evalutation: 01/20/19 16:55 I did immediately consult Dr. Michelle as patient does appear to be having a NSTEMI with elevated glucose as well. Vitals currently acceptable. Pt does have active chest pain. Pt was given aspirin and started receiving SL nitro. We have ordered plavix, lopressor, lovenox, and insulin. We will start fluids and check on a statin as well. 01/20/19 17:10 I spoke with May Solis and am awaiting a call back from the hospitalist. Pt has had improvement in her pain but it is still lingering and is a 2/5. BP has responded well and we will hold on the lopressor until we give some fluids. 01/20/19 17:25 HR currently 107 on the monitor and 119/81 BP. Pain continues to be 2/5. 01/20/19 17:41 HR 100, BP 126/77. Pain <=1/5 and improving. We will hold on nitro drip for now. May Solis did call me back, Dr. Navi Sanchez, who accepted pt for admit. We will check urine and VBG to confirm that she is no in ketosis. He would like us to let him know if we place on Nitro drip as this would push to ICU status. They plan on taking her for cath tomorrow otherwise. No further recommendati ons. 01/20/19 18:24 BP 182/81, HR 89. Lopressor will be given at 5mg IV. Pt starting to have in creased CP so we will start Nitro drip. Morphine also provided. Notified May Solis. Pt does have room assignment and transport will be here around 10pm. Pt in agreement with plan. 01/20/19 21:16 Transport arrived. Pt has no new concerns or complaints. Vitals acceptable. Pt stable for transfer. - Vital Signs Vital signs: Temp Pulse Resp BP Pulse Ox 98.3 F 101 H 15 176/92 H 95 01/20/19 17:53 01/20/19 14:41 01/20/19 21:01 01/20/19 21:01 01/20/19 21:01 - Laboratory Result Diagrams: 01/20/19 15:10 01/20/19 15:10 Laboratory results interpreted by me: 01/20/19 01/20/19 01/20/19 15:10 19:13 20:06 Sodium 133.8 L Chloride 97 L BUN 22 H Glucose 416 H* POC Glucose 271 H Alkaline Phosphatase 135 H Urine Protein 100 H Urine Glucose (UA) >=500 H Urine Ketones 20 H - EKG Interpretation by Me EKG shows normal: Sinus rhythm, ST-T Waves Rate: Normal Rhythm: NSR Critical Care Note - Critical Care Note Total time excluding time spent on procedures (mins): 38 Comments: with consults and multiple re-evaluations/management. Discharge - Discharge Clinical Impression: NSTEMI (non-ST elevated myocardial infarction) Condition: Stable Disposition: [facility] Referrals: JACKSON ROLDAN MD [Primary Care Provider] - Follow up as needed
[2019-01-20 17:16] LABS: INTERNATIONAL RATION (INR) 0.94; PROTHROMBIN TIME 12.6 SEC (11.4-15.4)
[2019-01-20 17:17] LABS: PARTIAL THROMBOPLASTIN TIME 24.9 SEC (23.5-35.8)
[2019-01-20] MEDS ORDERED: NITROGLYCERIN 0.4 MG/TAB 25 TAB/BOTTLE SL PRN (18:15)
[2019-01-20] MEDS ORDERED: MORPHINE SULFATE 10 MG/ML INJ IV ONE ×2 (18:17→18:18)
[2019-01-20] MEDS ORDERED: NITROGLYCERIN/D5W 50 MG/250 ML RTUINJ IV PRN (18:17)
[2019-01-20 18:22] LABS: VENOUS BLOOD BASE EXCESS -4.4 mmol/L; VENOUS BLOOD HCO3 20.4 mmol/L (20-32); VENOUS BLOOD PCO2 36.7 mmHg (35-63); VENOUS BLOOD PH 7.36 (7.30-7.42)
--- NOTE | 2019-01-20 20:14 | EKG REPORT ---
SEVERITY:- ABNORMAL ECG - SINUS RHYTHM PROBABLE LEFT ATRIAL ABNORMALITY LEFT ANTERIOR FASCICULAR BLOCK : Confirmed by: Tiffanie Wahl MD 20-Jan-2019 20:13:55
--- NOTE | 2019-01-20 20:14 | EKG REPORT ---
SEVERITY:- BORDERLINE ECG - SINUS RHYTHM LEFT AXIS DEVIATION BORDERLINE T WAVE ABNORMALITIES : Confirmed by: Tiffanie Wahl MD 20-Jan-2019 20:13:52
[2019-01-20 20:30] LABS: APPEARANCE,URINE SLIGHTLY-CLOUDY; BILIRUBIN,URINE NEGATIVE (NEGATIVE); COLOR,URINE YELLOW; GLUCOSE, URINE >=500 mg/dL (NEGATIVE); KETONES,URINE 20 mg/dL (NEGATIVE); LEUKOCYTE ESTERASE,URINE NEGATIVE (NEGATIVE); NITRITE,URINE NEGATIVE (NEGATIVE); PROTEIN,URINE 100 mg/dL (NEGATIVE); URINE SPECIFIC GRAVITY 1.028; UROBILINOGEN,URINE NEGATIVE mg/dL (<2.0)
[2019-01-20 21:20] VITALS: BP 163/85
== END 2019-01-20 21:39 | disposition short-term general hospital (02) ==
LOC: ER 14:30
DX: I21.4 Non-ST elevation (NSTEMI) myocardial infarction (principal); I10 Essential (primary) hypertension; E11.9 Type 2 diabetes mellitus without complications; J45.909 Unspecified asthma, uncomplicated; R06.02 Shortness of breath; R19.4 Change in bowel habit; Z88.8 Allergy status to other drugs, medicaments and biological substances; Z82.49 Family history of ischemic heart disease and other diseases of the circulatory system
CPT/HCPCS: 93005; 36415; 82962; 83690; 85025; 85610; 85730; 80053; 81001; 84484; 82803; 71046; 93010; A9270 ×5; J3010; J3490 ×2; J2270; J7030; J1650; J1815

== ENCOUNTER 2019-03-22 18:31 | Emergency (ER) | payer MEDICARE, MEDICAID ==
--- NOTE | 2019-03-22 19:38 | ER Document Report ---
ED Medical Screen (RME) - General Chief Complaint: Chest Pain Stated Complaint: CHEST PAIN Time Seen by Provider: 03/22/19 19:29 Primary Care Provider: JACKSON ROLDAN MD [Primary Care Provider] - Follow up as needed TRAVEL OUTSIDE OF THE [place] IN LAST 30 DAYS: No - HPI Notes: 03/22/19 19:36 Patient is a 68-year-old female with a history of coronary artery disease and double bypass performed 2 months ago at [facility], hypertension, hyperlipidemia, chronic pain, insulin-dependent diabetes who presents complaining of left sternal chest pain that has been present since lunchtime, but worsening over the past couple hours. Patient states that the pain is intermittent. She does have some shortness of breath associated. No fever. Pt did take 4 baby aspirin today. She is not sure if she is on any blood thinning meds otherwise. I have treated and performed a rapid initial assessment of this patient. A comprehensive ED assessment and evaluation of the patient, analysis of test results and completion of medical decision making process will be conducted by additional ED providers. PHYSICAL EXAMINATION: GENERAL: Well-appearing, well-nourished and in no acute distress. A&Ox4. Answers questions appropriately. Heart: RRR Lungs: CTAB - Related Data Allergies/Adverse Reactions: prochlorperazine edisylate [From Compazine] Allergy (Intermediate, Verified 03/22/19 19:30) facial pain prochlorperazine maleate [From Compazine] Allergy (Intermediate, Verified 03/22/19 19:30) facial pain Past Medical History - Past Medical History Cardiac Medical History: Reports: Hx Coronary Artery Disease, Hx Hypercholesterolemia, Hx Hypertension Pulmonary Medical History: Reports: Hx Asthma Neurological Medical History: Reports: Hx Migraine Endocrine Medical History: Reports: Hx Diabetes Mellitus Type 2 Renal/ Medical History: Reports: Hx Ovarian Cysts. Denies: Hx Peritoneal Dialysis Musculoskeltal Medical History: Reports Hx Arthritis, Reports Hx Musculoskeletal Deformity, Reports Hx Musculoskeletal Trauma Psychiatric Medical History: Reports: Hx Anxiety, Hx Depression - anxiety Traumatic Medical History: Reports: Hx Fractures - Shoulder ankle and elbow Past Surgical History: Reports: Hx Hysterectomy, Hx Orthopedic Surgery - Shoulder rotator cuff and carpal tunnel both wrist. Denies: Hx Pacemaker - Immunizations Hx Diphtheria, Pertussis, Tetanus Vaccination: Yes Physical Exam - Vital signs Vitals: Temp Pulse Resp BP Pulse Ox 97.4 F 109 H 16 144/70 H 96 03/22/19 18:58 03/22/19 18:58 03/22/19 18:58 03/22/19 18:58 03/22/19 18:58 Course - Vital Signs Vital signs: Temp Pulse Resp BP Pulse Ox 97.4 F 109 H 16 144/70 H 96 03/22/19 18:58 03/22/19 18:58 03/22/19 18:58 03/22/19 18:58 03/22/19 18:58 Doctor's Discharge - Discharge Referrals: JACKSON ROLDAN MD [Primary Care Provider] - Follow up as needed
--- NOTE | 2019-03-22 20:03 | RADIOLOGY REPORT (SQ) ---
EXAM DESCRIPTION: CHEST 2 VIEWS COMPLETED DATE/TIME: 03/22/2019 7:50 pm REASON FOR STUDY: CP COMPARISON: 01/20/2019 EXAM PARAMETERS: NUMBER OF VIEWS: two views TECHNIQUE: Digital Frontal and Lateral radiographic views of the chest acquired. RADIATION DOSE: NA LIMITATIONS: none FINDINGS: LUNGS AND PLEURA: No opacities, masses or pneumothorax. No pleural effusion. MEDIASTINUM AND HILAR STRUCTURES: No masses or contour abnormalities. HEART AND VASCULAR STRUCTURES: Heart normal size. No evidence for failure. BONES: Right shoulder replacement. HARDWARE: Interval sternotomy. OTHER: No other significant finding. IMPRESSION: NO ACUTE RADIOGRAPHIC FINDING IN THE CHEST. TECHNICAL DOCUMENTATION: JOB ID: [id number] [employer]- All Rights Reserved Reading location - IP/workstation name: [email or web address]
[2019-03-22] MEDS: NITROGLYCERIN 0.4 MG/TAB 25 TAB/BOTTLE SL PRN ×2 (20:17→20:26)
[2019-03-22 20:50] LABS: ABSOLUTE EOSINOPHILS # (AUTO) 0.2 10^3/uL (0.0-0.6); ABSOLUTE LYMPHOCYTES (AUTO) 2.5 10^3/uL (0.5-4.7); ABSOLUTE MONOCYTES (AUTO) 0.7 10^3/uL (0.1-1.4); ABSOLUTE NEUT (AUTO) 3.9 10^3/uL (1.7-8.2); BASOPHILS % (AUTO) 0.6 % (0-2); EOSINOPHILS % (AUTO) 2.9 % (0-6); HEMOGLOBIN 13.7 g/dL (12.0-15.5); LYMPHOCYTES % (AUTO) 34.4 % (13-45); MEAN CORPUSCULAR HEMOGLOBIN 32.1 pg (27.0-33.4); MEAN CORPUSCULAR HGB CONC 34.3 g/dL (32.0-36.0); MEAN CORPUSCULAR VOLUME 94 fl (80-97); MONOCYTES % (AUTO) 9.7 % (3-13); PLATELET COUNT 362 10^3/uL (150-450); RED BLOOD COUNT 4.27 10^6/uL (3.72-5.28); RED CELL DISTRIBUTION WIDTH 14.4 % (11.5-14.0); SEGMENTED NEUTROPHILS % (AUTO) 52.4 % (42-78); TOTAL CELLS COUNTED % (AUTO) 100 %; WHITE BLOOD COUNT 7.4 10^3/uL (4.0-10.5)
[2019-03-22 21:02] LABS: INTERNATIONAL RATION (INR) 0.98
[2019-03-22 21:06] LABS: ALBUMIN 4.2 g/dL (3.5-5.0); ALKALINE PHOSPHATASE 145 U/L (38-126); ANION GAP 13 (5-19); ASPARTATE AMINO TRANSFERASE 16 U/L (14-36); BILIRUBIN,DIRECT 0.3 mg/dL (0.0-0.4); BILIRUBIN,TOTAL 0.4 mg/dL (0.2-1.3); BLOOD UREA NITROGEN 22 mg/dL (7-20); CALCIUM 9.8 mg/dL (8.4-10.2); CARBON DIOXIDE 20 mmol/L (22-30); CHLORIDE 102 mmol/L (98-107); GLUCOSE 237 mg/dL (75-110); TOTAL PROTEIN 7.8 g/dL (6.3-8.2)
--- NOTE | 2019-03-22 21:27 | EKG REPORT ---
SEVERITY:- ABNORMAL ECG - SINUS TACHYCARDIA MULTIPLE VENTRICULAR PREMATURE COMPLEXES PROBABLE LEFT ATRIAL ABNORMALITY LEFT AXIS DEVIATION : Confirmed by: Tiffanie Wahl MD 22-Mar-2019 21:26:34
--- NOTE | 2019-03-22 21:51 | ER Document Report ---
ED Cardiac - General Chief Complaint: Chest Pain Stated Complaint: CHEST PAIN Time Seen by Provider: 03/22/19 19:29 Primary Care Provider: JACKSON ROLDAN MD [Primary Care Provider] - Follow up as needed Mode of Arrival: Ambulatory Information source: Patient TRAVEL OUTSIDE OF THE [place] IN LAST 30 DAYS: No - HPI Patient complains to provider of: Chest pain Was the onset of pain: Gradual When did pain begin: Today Chest pain location: Substernal Quality of pain: Intermittent, Severe, Heaviness, Sharp Chest pain radiation location: None - States chest pressure radiates across anterior chest Chest pain precipitating factors: At Rest Cardiac risk factors: Hypertension, Dyslipidemia, Hx NE - Related Data Allergies/Adverse Reactions: prochlorperazine edisylate [From Compazine] Allergy (Intermediate, Verified 03/22/19 19:30) facial pain prochlorperazine maleate [From Compazine] Allergy (Intermediate, Verified 03/22/19 19:30) facial pain Past Medical History - Social History Smoking Status: Never Smoker Family History: Arthritis, CAD, CVA, DM, Hyperlipidemia, Hypertension, Malignancy, Thyroid Disfunction Patient has suicidal ideation: No Patient has homicidal ideation: No - Past Medical History Cardiac Medical History: Reports: Hx Coronary Artery Disease, Hx Heart Attack - x1 01/2019, Hx Hypercholesterolemia, Hx Hypertension Pulmonary Medical History: Reports: Hx Asthma Neurological Medical History: Reports: Hx Migraine Endocrine Medical History: Reports: Hx Diabetes Mellitus Type 2 Renal/ Medical History: Reports: Hx Ovarian Cysts. Denies: Hx Peritoneal Dialysis Malignancy Medical History: Reports: None GI Medical History: Reports: None Musculoskeletal Medical History: Reports Hx Arthritis, Reports Hx Musculoskeletal Deformity, Reports Hx Musculoskeletal Trauma Psychiatric Medical History: Reports: Hx Anxiety, Hx Depression - anxiety Traumatic Medical History: Reports: Hx Fractures - Shoulder ankle and elbow Past Surgical History: Reports: Hx Cardiac Surgery - bypass, Hx Hysterectomy, Hx Orthopedic Surgery - Shoulder rotator cuff and carpal tunnel both wrist. Denies: Hx Pacemaker - Immunizations Hx Diphtheria, Pertussis, Tetanus Vaccination: Yes Hx Pneumococcal Vaccination: 03/09/09 Review of Systems - Review of Systems Constitutional: Malaise, Other - States she has not felt well over the past several days general malaise EENT: No symptoms reported Cardiovascular: Chest pain Respiratory: No symptoms reported Gastrointestinal: Nausea Genitourinary: No symptoms reported Female Genitourinary: No symptoms reported Musculoskeletal: Joint pain Skin: No symptoms reported Hematologic/Lymphatic: No symptoms reported Neurological/Psychological: No symptoms reported Physical Exam - Vital signs Vitals: Temp Pulse Resp BP Pulse Ox 97.4 F 109 H 16 144/70 H 96 03/22/19 18:58 03/22/19 18:58 03/22/19 18:58 03/22/19 18:58 03/22/19 18:58 Interpretation: Normal - Notes Notes: Obese - General General appearance: Appears well, Alert - HEENT Head: Normocephalic, Atraumatic Eyes: Normal Pupils: PERRL - Respiratory Respiratory status: No respiratory distress Chest status: Nontender Breath sounds: Normal Chest palpation: Normal - Cardiovascular Rhythm: Regular Heart sounds: Normal auscultation Murmur: No Notes: Reproducible chest wall pain anterior sternal right and left. Surgical scar noted midline over the sternum patient is exquisitely tender to light touch over her anterior chest wall. Patient states that her reason for coming in was diff erent than the sharp anterior chest wall pain but she reports heaviness that radiates across her chest that comes and goes. Associated with some shortness of breath and nausea. - Abdominal Inspection: Normal Distension: No distension Bowel sounds: Normal Tenderness: Nontender Organomegaly: No organomegaly - Back Back: Normal, Nontender - Extremities General upper extremity: Normal inspection, Nontender, Normal color, Normal ROM, Normal temperature General lower extremity: Normal inspection, Nontender, Normal color, Normal ROM, Normal temperature, Normal weight bearing. No: Wai's sign - Neurological Neuro grossly intact: Yes Cognition: Normal Orientation: AAOx4 [place] Coma Scale Eye Opening: Spontaneous Paul[place] Coma Scale Verbal: Oriented Paulina Coma Scale Motor: Obeys Commands [place] Coma Scale Total: 15 Speech: Normal Motor strength normal: LUE, RUE, LLE, RLE Sensory: Normal - Psychological Associated symptoms: Normal affect, Normal mood - Skin Skin Temperature: Warm Skin Moisture: Dry Skin Color: Normal Course - Re-evaluation Re-evalutation: 03/22/19 22:34 Discussed with patient what medication she is taken today and she reports that she took 4 baby aspirin today. However on closer questioning she has a misunderstanding that Aleve is aspirin and she has had 4 Aleve tablets today so. Were trying to reach her son who manages her medications to determine whether or not patient meds are accurate as she tells us. 03/23/19 00:09 Patient reports she still has 8 or 9 out of 10 chest pain. I discussed with patient that we are aware that she is out of her chronic pain medications that she normally takes for her chronic pain. I wanted to share with her that we were not really trying to treat her chronic pain is much is very concerned about cardiac pain. And patient states that she is hurting in her chest and she believes is cardiac in nature. 03/23/19 04:08 Patient has 2- troponin levels, therefore no ischemic change is indicated with her complaints. Patient still complains of chest pain and nausea. Patient has an elevated d-dimer so we are ordered a VQ scan inasmuch as he has poor vein access and unable to get a antecubital IV access. 03/23/19 06:[address] Silver hospitalist at [facility]. At this point in time the patient still pending her VQ scan because of her elevated d-dimer. Once that is completed we can then have another conversation about transfer if if that is positive as well as if she still has ongoing chest pain. I explained to Mr. Franco Dr. Silver that patient has a chronic pain disorder and is out of her chronic pain medications and I am not really certain that we are treating cardiac disease or if she is just asking for pain medication. Her EKG does not show any acute change and her troponin has been negative x2. 03/23/19 08:00 Currently we are still waiting for patient to have a completion of a V/Q pu lmonary scan. Once that has resulted will be able to make a decision and call [facility] to discuss that result our plan is to transfer patient to [facility] since 1 to 2 months ago she was in their facility receiving coronary artery bypass grafts and stents placements. Signout on this patient has been made to Dr. Reed and once the VQ scan results are obtained will be contacting you [facility]on[facility] Co[facility]. - Vital Signs Vital signs: Temp Pulse Resp BP Pulse Ox 97.4 F 109 H 14 129/75 H 95 03/22/19 18:58 03/22/19 18:58 03/23/19 06:01 03/23/19 06:01 01/15/20 06:01 - Laboratory Result Diagrams: 01/14/20 20:00 03/22/19 20:00 Laboratory results interpreted by me: 03/22/19 03/22/19 03/22/19 20:00 20:00 20:00 RDW 14.4 H D-Dimer 1.00 H Sodium 134.6 L Carbon Dioxide 20 L BUN 22 H Glucose 237 H POC Glucose Alkaline Phosphatase 145 H 03/22/19 20:20 RDW D-Dimer Sodium Carbon Dioxide BUN Glucose POC Glucose 230 H Alkaline Phosphatase - Diagnostic Test Radiology reviewed: Image reviewed, Reports reviewed Radiology results interpreted by me: 03/23/19 00:10 Chest x-ray shows no acute process - EKG Interpretation by Me Additional EKG results interpreted by me: 03/22/19 22:32 EKG done at 18 3312-lead shows sinus tachycardia rate of 95 occasional PVCs. Left axis deviation left and left atrial abnormality. No other acute ST changes. No STEMI. - Transfer of Care Care transferred to following provider: Dr. Reed Discharge - Discharge Clinical Impression: Diabetes mellitus type 2 in obese Condition: Fair Disposition: OTHER Referrals: JACKSON ROLDAN MD [Primary Care Provider] - Follow up as needed
[2019-03-22] MEDS ORDERED: ASPIRIN 81 MG TABLET, CHEWABLE PO ONE (23:58)
[2019-03-23] MEDS ORDERED: NITROGLYCERIN 2% OINTMENT 1 GM PACKET TP ONE (00:07)
[2019-03-23] MEDS: MORPHINE SULFATE 10 MG/ML INJ IV ONE ×2 (00:56→01:33)
[2019-03-23] MEDS: ONDANSETRON HCL INJ/PF 4 MG/2 ML SDV IV ONE ×2 (00:57→01:33)
[2019-03-23] MEDS ORDERED: MORPHINE SULFATE 10 MG/ML INJ IM ONE (01:33)
[2019-03-23] MEDS ORDERED: ONDANSETRON 4 MG TAB.RAPDIS PO ONE (01:34)
[2019-03-23] MEDS ORDERED: MORPHINE SULFATE 10 MG/ML INJ IV ONE ×2 (04:06→09:33)
[2019-03-23] MEDS ORDERED: ONDANSETRON HCL INJ/PF 4 MG/2 ML SDV IV ONE (04:07)
--- NOTE | 2019-03-23 09:58 | RADIOLOGY REPORT (SQ) ---
EXAM DESCRIPTION: NM LUNG VENT/PERF SCAN COMPLETED DATE/TIME: 03/23/2019 9:30 am REASON FOR STUDY: elevated d dimer/chest pain COMPARISON: Chest radiograph, 03/22/2019 RADIONUCLIDE AND DOSE: 5.42 millicuries TC-99m MAA Intravenous 31.2 millicuries TC-99m DTPA Inhaled aerosol TECHNIQUE: Eight views of the lungs acquired post ventilation of DTPA aerosol. Eight matching views of the lungs acquired following injection of MAA. LIMITATIONS: None. FINDINGS: VENTILATION: Symmetric and homogeneous distribution of DTPA aerosol during ventilatory pha se. No significant areas of photopenia. PERFUSION: Perfusion images with normal homogenous activity and no wedge-shaped or segmental defects. No ventilation-perfusion mismatches. OTHER: No other significant finding. IMPRESSION: Very low probability V/Q examination for pulmonary embolism (PE absent) TECHNICAL DOCUMENTATION: JOB ID: [id number] [employer]- All Rights Reserved Reading location - IP/workstation name: [email or web address]
--- NOTE | 2019-03-23 11:36 | EKG REPORT ---
SEVERITY:- ABNORMAL ECG - SINUS TACHYCARDIA VENTRICULAR PREMATURE COMPLEX LEFT ATRIAL ABNORMALITY LEFT AXIS DEVIATION BORDERLINE T ABNORMALITIES, ANT-LAT LEADS : Confirmed by: Tiffanie Wahl MD 23-Mar-2019 11:36:05
[2019-03-23 14:38] VITALS: BP 154/85
== END 2019-03-23 14:38 | disposition home or self-care (01) ==
LOC: ER 18:31
DX: R07.89 Other chest pain (principal); E11.9 Type 2 diabetes mellitus without complications; I49.3 Ventricular premature depolarization; F40.00 Agoraphobia, unspecified; R06.02 Shortness of breath; R00.0 Tachycardia, unspecified; R11.0 Nausea; I25.10 Atherosclerotic heart disease of native coronary artery without angina pectoris; I10 Essential (primary) hypertension; R53.81 Other malaise; I25.2 Old myocardial infarction; E66.9 Obesity, unspecified; J45.909 Unspecified asthma, uncomplicated; G89.4 Chronic pain syndrome; Z88.8 Allergy status to other drugs, medicaments and biological substances; Z95.1 Presence of aortocoronary bypass graft; R79.89 Other specified abnormal findings of blood chemistry; Z95.5 Presence of coronary angioplasty implant and graft
CPT/HCPCS: 93005 ×2; 96376; 99285; 96372; 96374; 96375; 36415; 82962; 85025; 85610; 80053; 84484; 85379; 71046; 78582; 93010 ×2; A9540; A9567; A9270 ×4; J2270; J2405; Q9969; S0119

== ENCOUNTER 2019-04-12 07:54 | Emergency (ER) | payer MEDICARE, MEDICAID ==
[2019-04-12 07:59] VITALS: BP 156/93
--- NOTE | 2019-04-12 09:24 | RADIOLOGY REPORT (SQ) ---
EXAM DESCRIPTION: ANKLE RIGHT COMPLETE COMPLETED DATE/TIME: 04/12/2019 8:50 am REASON FOR STUDY: pain to right foot COMPARISON: Right foot three views same date Right ankle three views 06/05/2009 NUMBER OF VIEWS: Three views. TECHNIQUE: AP, lateral, and oblique radiographic images acquired of the right ankle. LIMITATIONS: None. FINDINGS: MINERALIZATION: Normal. BONES: No acute fracture or dislocation. No worrisome bone lesions. JOINTS: Small tibiotalar joint effusion. No malalignment at the ankle mortise SOFT TISSUES: Diffuse lateral soft tissue swelling. No foreign body. OTHER: No other significant finding. IMPRESSION: Lateral soft tissue swelling with tibiotalar joint effusion. No acute fracture. No dis ruption of the ankle mortise. TECHNICAL DOCUMENTATION: JOB ID: [id number] [employer]- All Rights Reserved Reading location - IP/workstation name: [email or web address]
--- NOTE | 2019-04-12 09:29 | RADIOLOGY REPORT (SQ) ---
EXAM DESCRIPTION: FOOT RIGHT COMPLETE COMPLETED DATE/TIME: 04/12/2019 8:50 am REASON FOR STUDY: twisted and pain over dorsal surface COMPARISON: Right ankle same date three views NUMBER OF VIEWS: Three views. TECHNIQUE: AP, lateral and oblique radiographic images acquired of the right foot. LIMITATIONS: None. FINDINGS: MINERALIZATION: Normal. BONES: No acute fracture or dislocation. No worrisome bone lesions. JOINTS: No effusions. SOFT TISSUES: Diffuse forefoot soft tissue swelling. No foreign body. OTHER: No other significant finding. IMPRESSION: Forefoot soft tissue swelling. No acute displaced fracture. TECHNICAL DOCUMENTATION: JOB ID: [id number] [employer]- All Rights Reserved Reading location - IP/workstation name: [email or web address]
[2019-04-12] MEDS ORDERED: IBUPROFEN 600 MG TABLET PO ONE (09:50)
--- NOTE | 2019-04-12 09:55 | ER Document Report ---
ED Extremity Problem, Lower - General Chief Complaint: Foot Pain Stated Complaint: RIGHT FOOT PAIN Time Seen by Provider: 04/12/19 09:48 Primary Care Provider: [facility] [Provider Group] - Follow up as needed JACKSON ROLDAN MD [Primary Care Provider] - Follow up in 3-5 days Mode of Arrival: Wheelchair Information source: Patient Notes: 68-year-old female presented to ED for injury to her right foot and ankle. She was walking down the [place] when she somehow injured her foot and ankle knocking her to the floor. There is mild swelling to the ankle but there are no fractures according to the x-rays to her foot or ankle. There also no dislocations or malalignments to her ankle. Patient will be treated with Pepito wrap stirrup splint crutches and ibuprofen. Patient has been instructed to follow-up with the podiatrist orthopedic. TRAVEL OUTSIDE OF THE [place] IN LAST 30 DAYS: No - HPI Patient complains to provider of: Altered sensation, Pain, Swelling Location: Ankle, Foot Occurred: Other - 2 days ago Where: Home Onset/Duration: Gradual Quality of pain: Achy, Throbbing Severity: Moderate Pain Level: 3 Associated symptoms: Painful ambulation Exacerbated by: Movement, Walking Relieved by: Elevation, Ice, Rest - Related Data Allergies/Adverse Reactions: prochlorperazine edisylate [From Compazine] Allergy (Intermediate, Verified 04/12/19 08:13) facial pain prochlorperazine maleate [From Compazine] Allergy (Intermediate, Verified 04/12/19 08:13) facial pain Past Medical History - General Information source: Patient - Social History Smoking Status: Never Smoker Frequency of alcohol use: None Drug Abuse: None Occupation: Retired Lives with: Alone Family History: Arthritis, CAD, CVA, DM, Hyperlipidemia, Hypertension, Malignancy, Thyroid Disfunction Patient has suicidal ideation: No Patient has homicidal ideation: No - Past Medical History Cardiac Medical History: Reports: Hx Coronary Artery Disease, Hx Heart Attack - x1 01/2019, Hx Hypercholesterolemia, Hx Hypertension Pulmonary Medical History: Reports: Hx Asthma Neurological Medical History: Reports: Hx Migraine Endocrine Medical History: Reports: Hx Diabetes Mellitus Type 2 Renal/ Medical History: Reports: Hx Ovarian Cysts Malignancy Medical History: Reports: None GI Medical History: Reports: Hx Colonoscopy Musculoskeletal Medical History: Reports Hx Arthritis, Reports Hx Musculoskeletal Deformity, Reports Hx Musculoskeletal Trauma Psychiatric Medical History: Reports: Hx Anxiety, Hx Depression - anxiety Traumatic Medical History: Reports: Hx Fractures - Shoulder ankle and elbow Past Surgical History: Reports: Hx Cardiac Catheterization, Hx Cardiac Surgery - bypass, Hx Coronary Artery Bypass Graft, Hx Coronary Stent, Hx Hysterectomy, Hx Orthopedic Surgery - Shoulder rotator cuff and carpal tunnel both wrist - Immunizations Hx Diphtheria, Pertussis, Tetanus Vaccination: Yes Hx Pneumococcal Vaccination: 03/09/09 History of Influenza Vaccine for 12/2018 - 05/2019 Season: Yes Physical Exam - Vital signs Vitals: Temp Pulse Resp BP Pulse Ox 97.9 F 107 H 20 156/93 H 100 04/12/19 07:58 04/12/19 07:58 04/12/19 07:58 04/12/19 07:58 04/12/19 07:58 Interpretation: Normal - General General appearance: Appears well, Alert - HEENT Head: Normocephalic, Atraumatic Eyes: Normal Pupils: PERRL - Respiratory Respiratory status: No respiratory distress Chest status: Nontender Breath sounds: Normal Chest palpation: Normal - Cardiovascular Rhythm: Regular Heart sounds: Normal auscultation Murmur: No - Abdominal Inspection: Normal Distension: No distension Bowel sounds: Normal Tenderness: Nontender Organomegaly: No organomegaly - Back Back: Normal, Nontender - Extremities General upper extremity: Normal inspection, Nontender, Normal color, Normal ROM, Normal temperature General lower extremity: Normal color, Normal temperature, Normal weight bearing. No: Wai's sign Ankle: Tender, Ecchymosis, Edema. No: Abrasion, Deformity, Instability, Laceration, Limited ROM, Positive Klein's test, Unable to bear weight - Painful to ambulation Foot: Tender, Ecchymosis, Edema, No evidence of FB. No: Abrasion, Deformity, Instability, Laceration, Metatarsal compress. pain, Nail injury, Navicular tenderness, Puncture wound, Unable to bear weight - Painful to walk on foot - Neurological Neuro grossly intact: Yes Cognition: Normal Orientation: AAOx4 [place] Coma Scale Eye Opening: Spontaneous [place] Coma Scale Verbal: Oriented Paulina Coma Scale Motor: Obeys Commands [place] Coma Scale Total: 15 Speech: Normal Motor strength normal: LUE, RUE, LLE, RLE Sensory: Normal - Psychological Associated symptoms: Normal affect, Normal mood - Skin Skin Temperature: Warm Skin Moisture: Dry Skin Color: Normal Course - Re-evaluation Re-evalutation: 04/12/19 21:35 The patient is nontoxic appearing with stable vitals. They are afebrile. Ankle exam shows no deformities with no obvious ligament instability. There is a normal pulse and sensation distally. There is no redness or signs of infection. X-rays show no acute fracture per the radiologist. Patient will be placed in an Pepito wrap for comfort. Crutches will be offered and given if requested. Patient will be instructed to follow-up with not better in 1 week, sooner for increasing pain, fever, redness, numbness, tingling, weakness, any further concerns. Patient will be instructed to rest, ice, elevate their ankle. - Vital Signs Vital signs: Temp Pulse Resp BP Pulse Ox 97.9 F 107 H 20 156/93 H 100 04/12/19 07:58 04/12/19 07:58 04/12/19 07:58 04/12/19 07:58 04/12/19 07:58 - Diagnostic Test Radiology reviewed: Image reviewed, Reports reviewed Discharge - Discharge Clinical Impression: Right ankle sprain Qualifiers: Encounter type: initial encounter Involved ligament of ankle: unspecified ligament Qualified Code(s): S93.401A - Sprain of unspecified ligament of right ankle, initial encounter Condition: Stable Disposition: HOME, SELF-CARE Additional Instructions: SPRAINED ANKLE: Your sprained ankle results from stretching or tearing of the ligaments which support the ankle. This usually results from twisting the foot inward and under. The ligaments will require time and protection in order to heal properly. Many ankle sprains are quite disabling, and should be taken seriously. The usual treatment for an ankle sprain is cold packs; protection with tape, splints, or wraps; elevation; and staying off the ankle for at least a day. As the ankle improves, you can walk IF it's not painful to bear weight. Sports are best postponed until healing is complete. More serious sprains usually require strengthening exercises after early healing. Your physician has assessed the seriousness of the ligament injury to your ankle. However, the treatment may change, depending on how your ankle progresses. If further exams were recommended, it is important that you follow through. Call the doctor if your foot becomes numb, painful, or severely swollen. ANKLE STIRRUP SPLINT: You are to use an ankle brace called a stirrup splint. This type of brace allows you to place greater stresses on the ankle without risk of re-injury, and is often used for more severe ankle injuries such as avulsion fractures and ligament ruptures. The splint can be worn over a sock or tape. For proper support, wear the splint with a shoe over it. It's important that the splint fit properly. Adjust the heel tension, if needed. If your splint has air bladders, peel back the bottom of each air bladder, then move the Velcro attachment of the heel strap up or down. Air bladder pressure can be adjusted by pulling up the valve at the top, threading the air tube down into the main bladder, then blowing air into the bladder or squeezing it out. The two sides of the stirrup can be moved forward or back on your ankle by changing the attachment of the main straps. If you are unable to use the ankle comfortably in the splint, return for re-evaluation. PEPITO WRAP: A compression dressing (pepito wrap) has been placed. This helps hold the area still. It limits swelling and internal bleeding. The wrap should be comfortably snug -- not tight. You should feel a sense of pressure, but not severe pain under the wrap. Unless the physician tells you otherwise, you can adjust the wrap for comfort. If the wrap causes symptoms suggesting it's too tight -- uncomfortable pressure, swelling or discoloration beyond the wrap, numbness, or severe pain -- you must loosen the wrap. If these symptoms don't resolve promptly, return for re-evaluation. USE OF CRUTCHES: The doctor has recommended that you not bear weight at this time. You will need to use crutches. Adjust the crutches so the tops come to about two inches under the armpit while you are standing upright. Use your hands -- not your armpits -- to support your weight. To get into a chair, support yourself with one crutch on the injured side. Hold the chair with the other hand, then lower yourself while putting all your weight on the good leg. Going up stairs is `good leg up, step up, then bring up crutches and bad leg.' Down stairs is `bad leg and crutches down, then bring good leg down.' If you develop numbness or swelling in an arm or hand, you are using the crutches incorrectly. Return if you are having any problems with the crutches. ICE & ELEVATION: Apply ice packs frequently against the painful area. Many different schedules are recommended, such as "20 minutes on, 20 minutes off" or "one hour ice, two hours rest." If you need to work, you may need to go longer between ice treatments. You should plan to have the area ice packed AT LEAST one-fourth of the time. The ice should be applied over the wrap, tape, or splint, or over a layer of cloth -- not directly against the skin. Some ice bags have a built-in cloth and can be put directly on the skin. Your injured part should be elevated as much as possible over the next 48 hours. Try to keep the injury above the level of the heart. Avoid use of the injured area. Elevation and rest will decrease the swelling. USE OF [id number] IBUPROFEN: Ibuprofen (Advil, Nuprin, Medipren, Motrin IB) is a medication for fever and pain control. In addition, it has anti- inflammatory effects which may be beneficial, especially in the treatment of injuries. It's best to take ibuprofen with food. Persons with ulcer disease or allergy to aspirin should notify their physician of this before taking ibuprofen. Ibuprofen can be given every four to six hours, for a total of four doses daily. Age Pain or fever dose Antiinflammatory dose 6-8 yr 200 mg (1 tab) 200 mg (1 tab) 9-11 yr 200 mg (1 tab) 200-400 mg (1-2 tab) 11-14 yr 200-400 mg (1-2 tab) 400 mg (2 tab) 15-adult 400 mg (2 tab) 600 mg (3 tab) FOLLOW-UP CARE: If you have been referred to a physician for follow-up care, call the physicians office for an appointment as you were instructed or within the next two days. If you experience worsening or a significant change in your symptoms, notify the physician immediately or return to the Emergency Department at any time for re-evaluation. Forms: Elevated Blood Pressure Referrals: JACKSON ROLDAN MD [Primary Care Provider] - Follow up in 3-5 days [facility] [Provider Group] - Follow up as needed
== END 2019-04-12 10:06 | disposition home or self-care (01) ==
LOC: ER 07:54
DX: S93.401A Sprain of unspecified ligament of right ankle, initial encounter (principal); S99.921A Unspecified injury of right foot, initial encounter; S90.30XA Contusion of unspecified foot, initial encounter; X50.0XXA Overexertion from strenuous movement or load, initial encounter; Y92.008 Other place in unspecified non-institutional (private) residence as the place of occurrence of the external cause; I25.10 Atherosclerotic heart disease of native coronary artery without angina pectoris; I10 Essential (primary) hypertension; E11.9 Type 2 diabetes mellitus without complications; J45.909 Unspecified asthma, uncomplicated; Z88.8 Allergy status to other drugs, medicaments and biological substances
CPT/HCPCS: 99283; 73610; 73630; A9270